=== PATIENT | male | born 1955 | race Caucasian/White ===

== ENCOUNTER 2017-06-26 17:18 | Inpatient (IN) | payer BC, MEDICARE ==
[2017-06-26] MEDS ORDERED: Aspirin 81 MG Tab.Chew PO ONE (17:38)
--- NOTE | 2017-06-26 17:40 | EDM.PDOC ---
<Brian Vogel - Last Filed: 06/27/17 09:26> ED HPI GENERAL MEDICAL PROBLEM - General Chief Complaint: Chest Pain Stated Complaint: CHEST PAIN Time Seen by Provider: 06/26/17 17:25 Source of Information: Reports: Patient, Family, Old Records History Limitations: Reports: Other (some of his records not immediately available.) - History of Present Illness INITIAL COMMENTS - FREE TEXT/NARRATIVE: 61 yo male with a hx of peripheral neuropathy, CAD, and peripheral vascular dz presents with redness of the L foot and leg that has gotten progressively worse over the past couple of days as well today he has mild chest tightness. He has coronary stents placed in [place] at [facility]. He is still smoking. He does not have DM. He is not aware of fever, but has been chilled. He states his HR is usually in the upper 80's. He has NTG at home, but did not take any before coming in. He did have acetaminophen shortly before leaving home with oxycodone. Some dyspnea on exertion per his . No nausea, but does have anorexia this afternoon. No diaphoresis. Onset: Gradual Onset Date: 06/24/17 (L leg sx's) Duration: Day(s): (L leg sx's. Chest tightness new this afternoon. ), Getting Worse Location: Reports: Chest, Lower Extremity, Left Quality: Reports: Dull (chest sx's. Cannot feel L great toe wounds due to neuropathy.) Severity: Mild Improves with: Reports: None Worsens with: Reports: Other (? time) Context: Reports: Trauma (injured L great toe a couple days ago, not exactly sure when or how. Redness progressive since then. ) Associated Symptoms: Reports: Chest Pain (mild chest tightness.), Fever/Chills ( no definite fever.), Loss of Appetite, Malaise, Shortness of Breath (with exertion only). 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 Chest Pain Score (Numeric/FACES): 4 - Related Data Allergies Allergy/AdvReac Type Severity Reaction Status Date / Time No Known Allergies Allergy Verified 06/26/17 17:24 Home Meds: Home Meds ALPRAZolam [Xanax] 0.5 mg PO QID PRN 05/16/16 [History] Aspirin [Halfprin] 81 mg PO BEDTIME 05/16/16 [History] Cetirizine [ZyrTEC] 10 mg PO BEDTIME 05/16/16 [History] Clopidogrel [Plavix] 75 mg PO BEDTIME 05/16/16 [History] Metoprolol Succinate [Toprol XL] 25 mg PO BEDTIME 05/16/16 [History] Nicotine Polacrilex [Nicotine Gum] 4 mg BC ASDIRECTED PRN 05/16/16 [History] Pregabalin [Lyrica] 100 mg PO TID 05/16/16 [History] Simvastatin [Zocor] 80 mg PO BEDTIME 05/16/16 [History] oxyCODONE HCl/Acetaminophen [Endocet 5-325 Tablet] 1 - 2 each PO Q4H PRN [History] Past Medical History Musculoskeletal History: Reports: Other (See Below) Other Musculoskeletal History: right knee Social & Family History - Tobacco Use Smoking Status *Q: Current Every Day Smoker Years of Tobacco use: 40 Packs/Tins Daily: 0 - Recreational Drug Use Recreational Drug Use: No ED ROS GENERAL - Review of Systems Review Of Systems: See Below Constitutional: Reports: Chills, Fatigue, Decreased Appetite. Denies: Diaphoresis HEENT: Reports: No Symptoms Respiratory: Reports: Shortness of Breath (with exertion only). Denies: Wheezing, Pleuritic Chest Pain, Cough, Sputum, Hemoptysis Cardiovascular: Reports: Chest Pain (mild chest tightness), Dyspnea on Exertion. Denies: Edema, Lightheadedness, Orthopnea, Palpitations Endocrine: Reports: No Symptoms GI/Abdominal: Reports: Anorexia. Denies: Black Stool, Bloody Stool, Constipation, Diarrhea, Distension, Flatus, Hematemesis, Hematochezia, Melena, Mucous in Stool, Nausea, Vomiting : Reports: No Symptoms Musculoskeletal: Reports: No Symptoms Skin: Reports: Erythema (L leg below the knee.), Wound (L great toe, medial toe , as well as nail injury) Neurological: Reports: No Symptoms ED EXAM, GENERAL - Physical Exam Exam: See Below Exam Limited By: No Limitations General Appearance: Alert, WD/WN, No Apparent Distress Eye Exam: Bilateral Eye: Normal Inspection Ears: Normal External Exam, Normal Canal, Hearing Grossly Normal Ear Exam: Bilateral Ear: Auricle Normal, Canal Normal Nose: Normal Inspection, Normal Mucosa, No Blood Throat/Mouth: Normal Inspection, Normal Lips, Normal Oropharynx, Normal Voice, No Airway Compromise Head: Atraumatic, Normocephalic Neck: Normal Inspection, Supple, Non-Tender Respiratory/Chest: No Respiratory Distress, Lungs Clear, Normal Breath Sounds, No Accessory Muscle Use Cardiovascular: Regular Rate, Rhythm, No Edema, Tachycardia (mildly tachy) GI/Abdominal: Normal Bowel Sounds, Soft, Non-Tender, No Distention Back Exam: Normal Inspection. No: CVA Tenderness (R), CVA Tenderness (L), Vertebral Tenderness Extremities: Increased Warmth (LLE below the knee.), Redness (LLE below the knee with slight increase in warmth as well.), Other (Decreased pulses in both LE's below the knees.) Neurological: Alert, Oriented, CN II-XII Intact, Normal Cognition, No Motor/ Sensory Deficits Psychiatric: Normal Affect, Normal Mood Skin Exam: Warm, Dry, Erythema (below the L knee), Increased Warmth (below the L knee.), Wound/Incision (L great toe nail injury. Medial ulcer present. ) Lymphatic: No Adenopathy EKG INTERPRETATION EKG Date: 06/26/17 Time: 17:15 Rhythm: NSR Rate (Beats/Min): 103 [place]: Normal P-Wave: Present QRS: RBBB ST-T: Normal QT: Normal Comparison: Change From Previous EKG EKG Interpretation Comments: BBB is more prominent now. Course - Vital Signs Last Recorded V/S: Last Vital Signs Temp 36.8 C 06/29/17 17:44 Pulse 86 06/29/17 17:44 Resp 16 06/29/17 17:44 BP 133/67 06/29/17 17:44 Pulse Ox 95 06/29/17 17:44 - Orders/Labs/Meds Orders: Medication Orders Acetaminophen (Tylenol) 650 mg PO Q4H PRN PRN Reason: Pain (Mild 1-3)/fever Last Admin: 06/27/17 13:10 Dose: 325 mg Admin: 06/27/17 07:56 Dose: 325 mg Admin: 06/27/17 03:24 Dose: 325 mg Albuterol (Proventil Neb Soln) 2.5 mg NEB Q4H PRN PRN Reason: Shortness Of Breath/wheezing Alprazolam (Xanax) 0.5 mg PO QID PRN PRN Reason: Anxiety Last Admin: 06/29/17 00:00 Dose: 0.5 mg Admin: 06/27/17 20:46 Dose: 0.5 mg Aspirin (Halfprin) 81 mg PO BEDTIME [facility] Last Admin: 06/28/17 21:57 Dose: 81 mg Admin: 06/27/17 20:43 Dose: 81 mg Admin: 06/26/17 22:47 Dose: 81 mg Bacitracin (Bacitracin Oint) 0 gm TOP DAILY [facility] Last Admin: 06/29/17 09:47 Dose: 1 applic Admin: 06/29/17 06:46 Dose: 1 applic Admin: 06/28/17 08:29 Dose: 1 applic Admin: 06/27/17 13:06 Dose: 1 applic Cetirizine HCl (Zyrtec) 10 mg PO BEDTIME [facility] Last Admin: 06/28/17 21:57 Dose: 10 mg Admin: 06/27/17 20:42 Dose: 10 mg Clopidogrel Bisulfate (Plavix) 75 mg PO BEDTIME [facility] Last Admin: 06/28/17 21:57 Dose: 75 mg Admin: 06/27/17 20:43 Dose: 75 mg Admin: 06/26/17 22:48 Dose: 75 mg Docusate Sodium (Colace) 100 mg PO BID PRN PRN Reason: Constipation Last Admin: 06/28/17 21:56 Dose: 100 mg Admin: 06/28/17 08:24 Dose: 100 mg Admin: 06/28/17 04:41 Dose: 100 mg Enoxaparin Sodium (Lovenox) 40 mg SUBCUT Q24H [facility] Last Admin: 06/28/17 21:57 Dose: 40 mg Admin: 06/27/17 21:32 Dose: 40 mg Admin: 06/26/17 22:46 Dose: 40 mg Hydromorphone HCl (Dilaudid) 0.5 mg IVPUSH Q4H PRN PRN Reason: Pain Ertapenem 1 gm/ Sodium (Chloride) 100 mls @ 200 mls/hr IV Q24H [facility] Last Admin: 06/29/17 10:10 Dose: 200 mls/hr Magnesium Hydroxide (Milk Of Magnesia) 30 ml PO Q12H PRN PRN Reason: Constipation Metoprolol Succinate (Toprol Xl) 25 mg PO BEDTIME [facility] Last Admin: 06/28/17 21:57 Dose: 25 mg Admin: 06/27/17 20:41 Dose: 25 mg Admin: 06/26/17 22:48 Dose: 25 mg Nicotine (Habitrol) 7 mg TRDERM DAILY [facility] Last Admin: 06/29/17 08:32 Dose: 7 mg Admin: 06/28/17 08:23 Dose: 7 mg Admin: 06/27/17 08:00 Dose: 7 mg Admin: 06/26/17 22:46 Dose: 7 mg Nicotine Polacrilex (Nicorelief) 4 mg PO ASDIRECTED PRN PRN Reason: Other Ondansetron HCl (Zofran) 4 mg IV Q4H PRN PRN Reason: Nausea/Vomiting Oxycodone/Acetaminophen (Percocet 325-5 Mg) 1 - 2 tab PO Q4H PRN PRN Reason: Pain Last Admin: 06/29/17 17:42 Dose: 1 tab Admin: 06/29/17 13:24 Dose: 1 tab Admin: 06/29/17 13:17 Dose: 1 tab Admin: 06/29/17 08:39 Dose: 1 tab Admin: 06/29/17 04:12 Dose: 1 tab Admin: 06/28/17 21:54 Dose: 2 tab Admin: 06/28/17 17:27 Dose: 1 tab Admin: 06/28/17 13:22 Dose: 1 tab Admin: 06/28/17 08:24 Dose: 1 tab Admin: 06/28/17 04:42 Dose: 1 tab Admin: 06/27/17 23:07 Dose: 2 tab Admin: 06/27/17 19:17 Dose: 2 tab Admin: 06/27/17 13:10 Dose: 1 tab Admin: 06/27/17 07:55 Dose: 1 tab Admin: 06/27/17 03:24 Dose: 1 tab Admin: 06/26/17 22:49 Dose: 1 tab Polyethylene Glycol (Miralax) 17 gm PO DAILY PRN PRN Reason: Constipation Pregabalin (Lyrica) 100 mg PO TID [facility] Last Admin: 06/29/17 13:17 Dose: 100 mg Admin: 06/29/17 08:32 Dose: 100 mg Admin: 06/28/17 21:56 Dose: 100 mg Admin: 06/28/17 13:23 Dose: 100 mg Admin: 06/28/17 08:24 Dose: 100 mg Admin: 06/27/17 20:46 Dose: 100 mg Admin: 06/27/17 13:10 Dose: 100 mg Admin: 06/27/17 08:00 Dose: 100 mg Admin: 06/26/17 22:47 Dose: 100 mg Simvastatin (Zocor) 80 mg PO BEDTIME [facility] Last Admin: 06/28/17 21:56 Dose: 80 mg Admin: 06/27/17 20:43 Dose: 80 mg Admin: 06/26/17 22:49 Dose: 80 mg Sodium Chloride (Saline Flush) 10 ml FLUSH ASDIRECTED PRN PRN Reason: Keep Vein Open Labs: Laboratory Tests 06/26/17 06/26/17 06/26/17 Range/Units 17:32 17:32 17:33 WBC 19.8 H (4.5-11.0) K/uL RBC 5.06 (4.30-5.90) M/uL Hgb 15.5 H (12.0-15.0) g/dL Hct 45.4 (40.0-54.0) % MCV 90 (80-98) fL MCH 31 (27-31) pg MCHC 34 (32-36) % Plt Count 302 (150-400) K/uL Sodium 135 L (140-148) mmol/L Potassium 4.0 (3.6-5.2) mmol/L Chloride 97 L (100-108) mmol/L Carbon Dioxide 29 (21-32) mmol/L Anion Gap 13.0 (5.0-14.0) mmol/L BUN 11 (7-18) mg/dL Creatinine 1.2 (0.8-1.3) mg/dL Est Cr Clr Drug Dosing 73.26 mL/min Estimated GFR (MDRD) > 60 (>60) Glucose 167 H (74-106) mg/dL Lactic Acid 2.6 H (0.4-2.0) mmol/L Calcium 8.6 (8.5-10.1) mg/dL Troponin I 0.089 H* (0.000-0.056) ng/mL C-Reactive Protein (0.0-0.3) mg/dL NT-Pro-B Natriuret Pep (5-125) pg/mL Urine Color Urine Appearance Urine pH (4.5-8.0) Ur Specific War (1.008-1.030) Urine Protein (NEGATIVE) mg/dL Urine Glucose (UA) (NEGATIVE) mg/dL Urine Ketones (NEGATIVE) mg/dL Urine Occult Blood (NEGATIVE) Urine Nitrite (NEGAITVE) Urine Bilirubin (NEGATIVE) Urine Urobilinogen (NORMAL) mg/dL Ur Leukocyte Esterase (NEGATIVE) Urine RBC (0-5) Urine WBC (0-5) Ur Epithelial Cells Amorphous Sediment Urine Bacteria Urine Mucus 06/26/17 06/26/17 06/26/17 Range/Units 17:33 18:12 19:31 WBC (4.5-11.0) K/uL RBC (4.30-5.90) M/uL Hgb (12.0-15.0) g/dL Hct (40.0-54.0) % MCV (80-98) fL MCH (27-31) pg MCHC (32-36) % Plt Count (150-400) K/uL Sodium (140-148) mmol/L Potassium (3.6-5.2) mmol/L Chloride (100-108) mmol/L Carbon Dioxide (21-32) mmol/L Anion Gap (5.0-14.0) mmol/L BUN (7-18) mg/dL Creatinine (0.8-1.3) mg/dL Est Cr Clr Drug Dosing mL/min Estimated GFR (MDRD) (>60) Glucose (74-106) mg/dL Lactic Acid (0.4-2.0) mmol/L Calcium (8.5-10.1) mg/dL Troponin I 0.277 H* (0.000-0.056) ng/mL C-Reactive Protein 11.04 H (0.0-0.3) mg/dL NT-Pro-B Natriuret Pep (5-125) pg/mL Urine Color Yellow Urine Appearance Slightly cloudy Urine pH 5.0 (4.5-8.0) Ur Specific War 1.020 (1.008-1.030) Urine Protein Negative (NEGATIVE) mg/dL Urine Glucose (UA) Normal (NEGATIVE) mg/dL Urine Ketones Negative (NEGATIVE) mg/dL Urine Occult Blood Large (NEGATIVE) Urine Nitrite Negative (NEGAITVE) Urine Bilirubin Negative (NEGATIVE) Urine Urobilinogen Normal (NORMAL) mg/dL Ur Leukocyte Esterase Negative (NEGATIVE) Urine RBC 5-10 H (0-5) Urine WBC Not seen (0-5) Ur Epithelial Cells Not seen Amorphous Sediment Rare Urine Bacteria Few Urine Mucus Few 06/26/17 Range/Units 20:13 WBC (4.5-11.0) K/uL RBC (4.30-5.90) M/uL Hgb (12.0-15.0) g/dL Hct (40.0-54.0) % MCV (80-98) fL MCH (27-31) pg MCHC (32-36) % Plt Count (150-400) K/uL Sodium (140-148) mmol/L Potassium (3.6-5.2) mmol/L Chloride (100-108) mmol/L Carbon Dioxide (21-32) mmol/L Anion Gap (5.0-14.0) mmol/L BUN (7-18) mg/dL Creatinine (0.8-1.3) mg/dL Est Cr Clr Drug Dosing mL/min Estimated GFR (MDRD) (>60) Glucose (74-106) mg/dL Lactic Acid (0.4-2.0) mmol/L Calcium (8.5-10.1) mg/dL Troponin I (0.000-0.056) ng/mL C-Reactive Protein (0.0-0.3) mg/dL NT-Pro-B Natriuret Pep 470 H (5-125) pg/mL Urine Color Urine Appearance Urine pH (4.5-8.0) Ur Specific War (1.008-1.030) Urine Protein (NEGATIVE) mg/dL Urine Glucose (UA) (NEGATIVE) mg/dL Urine Ketones (NEGATIVE) mg/dL Urine Occult Blood (NEGATIVE) Urine Nitrite (NEGAITVE) Urine Bilirubin (NEGATIVE) Urine Urobilinogen (NORMAL) mg/dL Ur Leukocyte Esterase (NEGATIVE) Urine RBC (0-5) Urine WBC (0-5) Ur Epithelial Cells Amorphous Sediment Urine Bacteria Urine Mucus Meds: Medications Generic Name Dose Route Start Last Admin Trade Name Freq PRN Reason Stop Dose Admin Acetaminophen 650 mg 06/26/17 22:03 06/27/17 13:10 Tylenol PO 325 mg Q4H PRN Administration Pain (Mild 1-3)/fever Albuterol 2.5 mg 06/26/17 22:03 Proventil Neb Soln NEB Q4H PRN Shortness Of Breath/wheezing Alprazolam 0.5 mg 06/26/17 22:03 06/29/17 00:00 Xanax PO 0.5 mg QID PRN Administration Anxiety Aspirin 81 mg 06/26/17 22:30 06/28/17 21:57 Halfprin PO 81 mg BEDTIME [facility] Administration Bacitracin 0 gm 06/27/17 10:30 06/29/17 09:47 Bacitracin Oint TOP 1 applic DAILY [facility] Administration Cetirizine HCl 10 mg 06/27/17 21:00 06/28/17 21:57 Zyrtec PO 10 mg BEDTIME [facility] Administration Clopidogrel Bisulfate 75 mg 06/26/17 22:30 06/28/17 21:57 Plavix PO 75 mg BEDTIME [facility] Administration Docusate Sodium 100 mg 06/26/17 22:03 06/28/17 21:56 Colace PO 100 mg BID PRN Administration Constipation Enoxaparin Sodium 40 mg 06/26/17 22:00 06/28/17 21:57 Lovenox SUBCUT 40 mg Q24H [facility] Administration Hydromorphone HCl 0.5 mg 06/26/17 22:03 Dilaudid IVPUSH Q4H PRN Pain Ertapenem 1 gm/ Sodium 100 mls @ 200 mls/hr 06/29/17 10:00 06/29/17 10:10 Chloride IV 200 mls/hr Q24H [facility] Administration Magnesium Hydroxide 30 ml 06/26/17 22:03 Milk Of Magnesia PO Q12H PRN Constipation Metoprolol Succinate 25 mg 06/26/17 22:30 06/28/17 21:57 Toprol Xl PO 25 mg BEDTIME [facility] Administration Nicotine 7 mg 06/26/17 22:03 06/29/17 08:32 Habitrol TRDERM 7 mg DAILY [facility] Administration Nicotine Polacrilex 4 mg 06/26/17 22:03 Nicorelief PO ASDIRECTED PRN Other Ondansetron HCl 4 mg 06/26/17 22:03 Zofran IV Q4H PRN Nausea/Vomiting Oxycodone/Acetaminophen 1 - 2 tab 06/26/17 22:03 06/29/17 17:42 Percocet 325-5 Mg PO 1 tab Q4H PRN Administration Pain Polyethylene Glycol 17 gm 06/26/17 22:03 Miralax PO DAILY PRN Constipation Pregabalin 100 mg 06/26/17 22:30 06/29/17 13:17 Lyrica PO 100 mg TID [facility] Administration Simvastatin 80 mg 06/26/17 22:30 06/28/17 21:56 Zocor PO 80 mg BEDTIME [facility] Administration Sodium Chloride 10 ml 06/26/17 22:03 Saline Flush FLUSH ASDIRECTED PRN Keep Vein Open Discontinued Medications Generic Name Dose Route Start Last Admin Trade Name Freq PRN Reason Stop Dose Admin Acetaminophen 650 mg 06/26/17 21:36 06/26/17 21:43 Tylenol PO 06/26/17 21:37 650 mg NOW ONE Administration Acetaminophen Confirm 06/27/17 03:22 06/27/17 05:04 Tylenol Administered 06/27/17 03:23 Not Given Dose 325 mg .ROUTE .STK-MED ONE Aspirin 324 mg 06/26/17 17:38 06/26/17 17:46 Aspirin PO 06/26/17 17:39 324 mg ONETIME ONE Administration Aspirin 81 mg 06/27/17 21:00 Halfprin PO BEDTIME [facility] Clopidogrel Bisulfate 75 mg 06/27/17 21:00 Plavix PO BEDTIME [facility] Hydromorphone HCl 0.5 mg 06/26/17 21:40 06/26/17 21:45 Dilaudid IVPUSH 06/26/17 21:41 0.5 mg ONETIME ONE Administration Sodium Chloride 1,000 mls @ 1,000 mls/hr 06/26/17 18:00 06/26/17 18:04 Normal Saline IV 1,000 mls/hr ASDIRECTED [facility] Administration Piperacillin Sod/Tazobactam 100 mls @ 200 mls/hr 06/26/17 18:06 06/26/17 18: 34 Sod 4.5 gm/ Sodium Chloride IV 06/26/17 18:35 200 mls/hr NOW STA Administration Vancomycin HCl 1 gm/ Sodium 250 mls @ 150 mls/hr 06/26/17 18:07 06/26/17 19: 08 Chloride IV 06/26/17 19:46 150 mls/hr ONETIME ONE Administration Sodium Chloride 1,000 mls @ 1,000 mls/hr 06/26/17 18:12 06/26/17 18:33 Normal Saline IV 06/26/17 19:11 1,000 mls/hr .BOLUS ONE Administration Sodium Chloride 1,000 mls @ 250 mls/hr 06/26/17 20:00 06/26/17 20:36 Normal Saline IV 250 mls/hr ASDIRECTED [facility] Administration Piperacillin Sod/Tazobactam 50 mls @ 100 mls/hr 06/27/17 00:30 06/27/17 05:31 Sod 3.375 gm/ Sodium Chloride IV 100 mls/hr Q6H [facility] Administration Sodium Chloride 1,000 mls @ 125 mls/hr 06/27/17 01:45 06/27/17 02:30 Normal Saline IV 125 mls/hr ASDIRECTED [facility] Administration Sodium Chloride 1,000 mls @ 500 mls/hr 06/26/17 22:30 06/27/17 00:30 Normal Saline IV 06/27/17 02:29 500 mls/hr Q2H [facility] Administration Vancomycin HCl 1.75 gm/ Sodium 500 mls @ 250 mls/hr 06/27/17 07:00 Chloride IV Q12H [facility] Piperacillin/Tazobactam/ 50 mls @ 100 mls/hr 06/27/17 12:00 06/29/17 05:35 Dextrose 3.375 gm/ Premix IV 100 mls/hr Q6H [facility] Administration Vancomycin HCl 1.75 gm/ Sodium 250 mls @ 135 mls/hr 06/27/17 08:00 06/28/17 08:22 Chloride IV 135 mls/hr Q12H [facility] Administration Magnesium Sulfate 2 gm/ Premix 50 mls @ 25 mls/hr 06/27/17 10:00 06/27/17 16: 24 IV 06/27/17 17:59 25 mls/hr Q6H [facility] Administration Sodium Chloride 1,000 mls @ 75 mls/hr 06/27/17 10:30 06/27/17 18:24 Normal Saline IV 75 mls/hr ASDIRECTED [facility] Administration Metoprolol Succinate 25 mg 06/27/17 21:00 Toprol Xl PO BEDTIME [facility] Nitroglycerin 0.4 mg 06/26/17 17:38 06/26/17 18:02 Nitrostat SL 0.4 mg Q5M PRN Administration Chest Pain Pregabalin 100 mg 06/27/17 09:00 Lyrica PO TID [facility] Simvastatin 80 mg 06/27/17 21:00 Zocor PO BEDTIME [facility] Sodium Chloride 10 ml 06/26/17 17:32 06/26/17 21:49 Saline Flush FLUSH 10 ml ASDIRECTED PRN Administration Keep Vein Open Departure - Departure Time of Disposition: 20:15 Disposition: Admitted As Inpatient 64 Condition: Serious Clinical Impression: Elevated troponin Sepsis Qualifiers: Sepsis type: sepsis due to unspecified organism Qualified Code(s): A41.9 - Sepsis, unspecified organism Cellulitis Qualifiers: Site of cellulitis: extremity Site of cellulitis of extremity: lower extremity Laterality: left Qualified Code(s): L03.116 - Cellulitis of left lower limb <Chica Cobos - Last Filed: 06/29/17 18:40> ED HPI GENERAL MEDICAL PROBLEM Back Pain Score (Numeric/FACES): 3 Course - Re-Assessments/Exams Free Text/Narrative Re-Assessment/Exam: 06/26/17 20:13 pt was gven a total of 2000 cc of fluid and zosyn and vancomycin was started. He had a repeat trop which was more elevated at .277. 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
[2017-06-26] MEDS: Sodium Chloride 0.9% 10 ML Syringe FLUSH PRN ×2 (17:46→21:49)
[2017-06-26] MEDS: Nitroglycerin 0.4 MG Tab.SL SL PRN ×2 (17:47→18:02)
[2017-06-26] MEDS ORDERED: Sodium Chloride 0.9% 1,000 ML IV SCH ×2 (18:00→20:00)
[2017-06-26] MEDS ORDERED: Piperacillin/Tazobactam 4.5 GM in Sodium Chloride 0.9% 100 ML IV STA (18:06)
[2017-06-26] MEDS ORDERED: Sodium Chloride 0.9% 1,000 ML IV ONE (18:12)
[2017-06-26] MEDS ORDERED: Acetaminophen 325 MG Tab PO ONE (21:36)
[2017-06-26] MEDS ORDERED: HYDROmorphone 0.5 MG/0.5 ML Syringe IVPUSH ONE (21:40)
--- NOTE | 2017-06-26 21:58 | PCM.HP ---
H&P History of Present Illness - General Date of Service: 06/26/17 Admit Problem/Dx: Admission Diagnosis/Problem Admission Diagnosis/Problem Cellulitis Source of Information: Patient, Family, Provider, RN Notes Reviewed History Limitations: Reports: No Limitations - History of Present Illness Initial Comments - Free Text/Narative: Bautista is a 61-year-old gentleman who is admitted through the emergency department with left foot infection and associated sepsis. He has a known history of peripheral arterial disease, as well as peripheral neuropathy. Approximately one week ago injured his left first toe when he stubbed it. Over the last 3 days has noted pain in the left leg and over the last 24 hours has had fever with chills. He became more acutely ill today and presented to the emergency department for further evaluation. On examination there is inflammation and erythema with increased warmth of the left foot and extending into the left leg. There is some drainage from the left first toe. He's had associated tachycardia with fever and elevated white count. Lactic acid level is mildly elevated. He has a known history of coronary artery disease and did experience a half hour to one hour of chest pressure when he felt acutely ill this afternoon and early evening. Initial troponin level was elevated at 0.09 and second reading was up to 0.22. He's had no further symptoms of chest pain or pressure EKG does show underlying right bundle branch block which is chronic. Chest Pain Score (Numeric/FACES): 4 - Related Data Allergies/Adverse Reactions: Allergies Allergy/AdvReac Type Severity Reaction Status Date / Time No Known Allergies Allergy Verified 06/26/17 17:24 Home Medications: Home Meds ALPRAZolam [Xanax] 0.5 mg PO QID PRN 05/16/16 [History] Aspirin [Halfprin] 81 mg PO BEDTIME 05/16/16 [History] Cetirizine [ZyrTEC] 10 mg PO BEDTIME 05/16/16 [History] Clopidogrel [Plavix] 75 mg PO BEDTIME 05/16/16 [History] Metoprolol Succinate [Toprol XL] 25 mg PO BEDTIME 05/16/16 [History] Nicotine Polacrilex [Nicotine Gum] 4 mg BC ASDIRECTED PRN 05/16/16 [History] Pregabalin [Lyrica] 100 mg PO QID 05/16/16 [History] Simvastatin [Zocor] 80 mg PO BEDTIME 05/16/16 [History] oxyCODONE HCl/Acetaminophen [Endocet 5-325 Tablet] 1 - 2 each PO Q4H PRN [History] Past Medical History HEENT History: Reports: Hard of Hearing, Other (See Below) Other HEENT History: ruptured ear drums Cardiovascular History: Reports: Afib, Bypass, CAD, NH, PVD, SOB on Exertion, Stents Respiratory History: Reports: COPD Musculoskeletal History: Reports: Other (See Below) Other Musculoskeletal History: right knee Neurological History: Reports: Neuropathy, Peripheral Psychiatric History: Reports: Anxiety - Past Surgical History HEENT Surgical History: Reports: Tonsillectomy Cardiovascular Surgical History: Reports: Coronary Artery Bypass, Coronary Artery Stent, Vascular Surgery, Other (See Below) Other Cardiovascular Surgeries/Procedures: "attempted vascular surgery" was unsuccessful. GI Surgical History: Reports: Appendectomy, Colonoscopy, Hernia, Abdominal, Polypectomy Neurological Surgical History: Reports: Laminectomy, Lumbar Spine, Spinal Fusion , Other (See Below) Other Neurological Surgeries/Procedures: alif surgery Musculoskeletal Surgical History: Reports: Arthroscopic Knee, Knee Replacement Social & Family History - Tobacco Use Smoking Status *Q: Current Every Day Smoker Years of Tobacco use: 40 Packs/Tins Daily: 0 - Recreational Drug Use Recreational Drug Use: No H&P Review of Systems - Review of Systems: Review Of Systems: See Below General: Reports: Fever, Chills, Malaise, Weakness, Diaphoresis, Decreased Appetite HEENT: Reports: No Symptoms Pulmonary: Reports: Shortness of Breath. Denies: Wheezing, Pleuritic Chest Pain , Cough, Sputum, Hemoptysis Cardiovascular: Reports: Chest Pain. Denies: Orthopnea, PND, Edema, Lightheadedness, Syncope Gastrointestinal: Reports: Anorexia, Nausea, Vomiting. Denies: Abdominal Pain, Black Stool, Bloody Stool, Constipation, Diarrhea Genitourinary: Reports: No Symptoms Musculoskeletal: Reports: Back Pain Skin: Reports: No Symptoms Psychiatric: Reports: No Symptoms Neurological: Reports: No Symptoms Hematologic/Lymphatic: Reports: No Symptoms Immunologic: Reports: No Symptoms Exam - Exam Exam: See Below - Vital Signs Vital Signs: Last Vital Signs Temp 101.9 F H 06/26/17 21:43 Pulse 106 H 06/26/17 20:50 Resp 20 06/26/17 20:50 BP 150/76 H 12/25/17 20:50 Pulse Ox 96 06/26/17 20:50 Weight: 255 lb - Exam Quality Assessment: DVT Prophylaxis General: Alert, Oriented, Cooperative, Moderate Distress HEENT: Conjunctiva Clear, Hearing Intact, Normal Nasal Septum, Posterior Pharynx Clear, Pupils Equal. No: Mucosa Moist & [place] Neck: Supple, Trachea Midline, +2 Carotid Pulse wo Bruit Lungs: Decreased Breath Sounds, Wheezing. No: Crackles, Rales, Rhonchi, Rub Cardiovascular: Regular Rate, Regular Rhythm, Normal S1, Normal S2. No: Systolic Murmur, Diastolic Murmur GI/Abdominal Exam: Soft, Non-Tender, No Organomegaly, No Distention Back Exam: Normal Inspection, Vertebral Tenderness Extremities: Increased Warmth, Redness, Other (Edema of the left foot with tenderness to palpation) Skin: Warm, Dry Neurological: Cranial Nerves Intact, Strength Equal Bilateral, Normal Speech, Normal Tone. No: Sensation Intact, Focal Deficit Neuro Extensive - Mental Status: Alert, Oriented x3, Normal Mood/Affect, Normal Cognition, Memory Intact - Patient Data Lab Results Last 24 hrs: Laboratory Results - last 24 hr 06/26/17 06/26/17 06/26/17 Range/Units 17:32 17:32 17:33 WBC 19.8 H (4.5-11.0) K/uL RBC 5.06 (4.30-5.90) M/uL Hgb 15.5 H (12.0-15.0) g/dL Hct 45.4 (40.0-54.0) % MCV 90 (80-98) fL MCH 31 (27-31) pg MCHC 34 (32-36) % Plt Count 302 (150-400) K/uL Sodium 135 L (140-148) mmol/L Potassium 4.0 (3.6-5.2) mmol/L Chloride 97 L (100-108) mmol/L Carbon Dioxide 29 (21-32) mmol/L Anion Gap 13.0 (5.0-14.0) mmol/L BUN 11 (7-18) mg/dL Creatinine 1.2 (0.8-1.3) mg/dL Est Cr Clr Drug Dosing 73.26 mL/min Estimated GFR (MDRD) > 60 (>60) Glucose 167 H (74-106) mg/dL Lactic Acid 2.6 H (0.4-2.0) mmol/L Calcium 8.6 (8.5-10.1) mg/dL Troponin I 0.089 H* (0.000-0.056) ng/mL C-Reactive Protein (0.0-0.3) mg/dL NT-Pro-B Natriuret Pep (5-125) pg/mL Urine Color Urine Appearance Urine pH (4.5-8.0) Ur Specific [place]att[place] (1.008-1.030) Urine Protein (NEGATIVE) mg/dL Urine Glucose (UA) (NEGATIVE) mg/dL Urine Ketones (NEGATIVE) mg/dL Urine Occult Blood (NEGATIVE) Urine Nitrite (NEGAITVE) Urine Bilirubin (NEGATIVE) Urine Urobilinogen (NORMAL) mg/dL Ur Leukocyte Esterase (NEGATIVE) Urine RBC (0-5) Urine WBC (0-5) Ur Epithelial Cells Amorphous Sediment Urine Bacteria Urine Mucus 06/26/17 06/26/17 06/26/17 Range/Units 17:33 18:12 19:31 WBC (4.5-11.0) K/uL RBC (4.30-5.90) M/uL Hgb (12.0-15.0) g/dL Hct (40.0-54.0) % MCV (80-98) fL MCH (27-31) pg MCHC (32-36) % Plt Count (150-400) K/uL Sodium (140-148) mmol/L Potassium (3.6-5.2) mmol/L Chloride (100-108) mmol/L Carbon Dioxide (21-32) mmol/L Anion Gap (5.0-14.0) mmol/L BUN (7-18) mg/dL Creatinine (0.8-1.3) mg/dL Est Cr Clr Drug Dosing mL/min Estimated GFR (MDRD) (>60) Glucose (74-106) mg/dL Lactic Acid (0.4-2.0) mmol/L Calcium (8.5-10.1) mg/dL Troponin I 0.277 H* (0.000-0.056) ng/mL C-Reactive Protein 11.04 H (0.0-0.3) mg/dL NT-Pro-B Natriuret Pep (5-125) pg/mL Urine Color Yellow Urine Appearance Slightly cloudy Urine pH 5.0 (4.5-8.0) Ur Specific [place] 1.020 (1.008-1.030) Urine Protein Negative (NEGATIVE) mg/dL Urine Glucose (UA) Normal (NEGATIVE) mg/dL Urine Ketones Negative (NEGATIVE) mg/dL Urine Occult Blood Large (NEGATIVE) Urine Nitrite Negative (NEGAITVE) Urine Bilirubin Negative (NEGATIVE) Urine Urobilinogen Normal (NORMAL) mg/dL Ur Leukocyte Esterase Negative (NEGATIVE) Urine RBC 5-10 H (0-5) Urine WBC Not seen (0-5) Ur Epithelial Cells Not seen Amorphous Sediment Rare Urine Bacteria Few Urine Mucus Few 06/26/17 Range/Units 20:13 WBC (4.5-11.0) K/uL RBC (4.30-5.90) M/uL Hgb (12.0-15.0) g/dL Hct (40.0-54.0) % MCV (80-98) fL MCH (27-31) pg MCHC (32-36) % Plt Count (150-400) K/uL Sodium (140-148) mmol/L Potassium (3.6-5.2) mmol/L Chloride (100-108) mmol/L Carbon Dioxide (21-32) mmol/L Anion Gap (5.0-14.0) mmol/L BUN (7-18) mg/dL Creatinine (0.8-1.3) mg/dL Est Cr Clr Drug Dosing mL/min Estimated GFR (MDRD) (>60) Glucose (74-106) mg/dL Lactic Acid (0.4-2.0) mmol/L Calcium (8.5-10.1) mg/dL Troponin I (0.000-0.056) ng/mL C-Reactive Protein (0.0-0.3) mg/dL NT-Pro-B Natriuret Pep 470 H (5-125) pg/mL Urine Color Urine Appearance Urine pH (4.5-8.0) Ur Specific Rattan (1.008-1.030) Urine Protein (NEGATIVE) mg/dL Urine Glucose (UA) (NEGATIVE) mg/dL Urine Ketones (NEGATIVE) mg/dL Urine Occult Blood (NEGATIVE) Urine Nitrite (NEGAITVE) Urine Bilirubin (NEGATIVE) Urine Urobilinogen (NORMAL) mg/dL Ur Leukocyte Esterase (NEGATIVE) Urine RBC (0-5) Urine WBC (0-5) Ur Epithelial Cells Amorphous Sediment Urine Bacteria Urine Mucus Result Diagrams: 06/26/17 17:32 06/26/17 17:32 *Q Meaningful Use (ADM) - VTE *Q VTE Criteria *Q: - VTE Risk Assess *Q Each Risk Factor Represents 1 Point: Obesity ( BMI > 25 kg/m2), Abnormal Pulmonary Function (COPD) Total Score 1 Point Risk Factors: 2 Each Risk Factor Represents 2 Points: Age 60 - 74 Years Total Score 2 Point Risk Factors: 2 Each Risk Factor Represents 3 Points: None Total Score 3 Point Risk Factors: 0 Each Risk Factor Represents 5 Points: None Total Score 5 Point Risk Factors: 0 Venous Thromboembolism Risk Factor Score *Q: 4 - Stroke *Q Stroke Criteria *Q: - AMI *Q AMI Criteria *Q: Problem List Initiated/Reviewed/Updated: Yes Orders Last 24hrs: Active Orders 24 hr Category Date Time Status Patient Status Manage Transfer [TRANSFER] Routine ADT 06/26/17 21:41 Ordered Cardiac Monitoring [RC] .As Directed Care 06/26/17 17:24 Active EKG Documentation Completion [RC] ASDIRECTED Care 06/26/17 17:24 Active Chest 1V Frontal [CR] Stat Exams 06/26/17 17:58 Taken CULTURE BLOOD [BC] Stat Lab 06/26/17 17:40 Received CULTURE BLOOD [BC] Stat Lab 06/26/17 18:05 Received Nitroglycerin [Nitrostat] Med 06/26/17 17:38 Active 0.4 mg SL Q5M PRN Sodium Chloride 0.9% [Normal Saline] 1,000 ml Med 06/26/17 18:00 Active IV ASDIRECTED Sodium Chloride 0.9% [Normal Saline] 1,000 ml Med 06/26/17 20:00 Active IV ASDIRECTED Sodium Chloride 0.9% [Saline Flush] Med 06/26/17 17:32 Active 10 ml FLUSH ASDIRECTED PRN Saline Lock Insert [OM.PC] Routine Oth 06/26/17 17:32 Ordered Resuscitation Status Routine Resus Stat 06/26/17 21:43 Ordered EKG 12 Lead [EK] Routine Ther 06/26/17 17:24 Ordered Medication Orders Sodium Chloride (Normal Saline) 1,000 mls @ 1,000 mls/hr IV ASDIRECTED KEISHA Last Admin: 06/26/17 18:04 Dose: 1,000 mls/hr Sodium Chloride (Normal Saline) 1,000 mls @ 250 mls/hr IV ASDIRECTED KEISHA Last Admin: 06/26/17 20:36 Dose: 250 mls/hr Nitroglycerin (Nitrostat) 0.4 mg SL Q5M PRN PRN Reason: Chest Pain Last Admin: 06/26/17 18:02 Dose: 0.4 mg Admin: 06/26/17 17:47 Dose: 0.4 mg Sodium Chloride (Saline Flush) 10 ml FLUSH ASDIRECTED PRN PRN Reason: Keep Vein Open Last Admin: 06/26/17 21:49 Dose: 10 ml Admin: 06/26/17 17:46 Dose: 10 ml Assessment/Plan Comment:: ASSESSMENT AND PLAN CELLULITIS LEFT FOOT WITH SEPSIS-injury to the left first toe approximately 1 week ago. Increased pain over the past 72 hours with evidence of infection over the last 24 hours. Evidence of sepsis on initial evaluation. -Blood cultures pending -Vigorous IV fluid replacement per sepsis protocol -Repeat lactic acid level later tonight and again in a.m. -Surgical consult in a.m. -Broad-spectrum IV antibiotic therapy; vancomycin and Zosyn, pending culture results ELEVATED TROPONIN-likely demand ischemia in the setting of sepsis -Repeat troponin level later tonight and again in a.m. -Consider cardiology follow-up after infection resolved PERIPHERAL ARTERIAL DISEASE -Continue outpatient management MAINTENANCE ISSUES -DVT prophylaxis; Lovenox 40 mg subcutaneous daily -GI prophylaxis; not indicated -Brothers catheter; not indicated -Nutrition; regular diet -Nicotine dependence; 7 mg nicotinic patch, nicotinic, as needed CODE STATUS-FULL CODE ADMISSION STATUS-patient will be admitted to inpatient status, expect at least a 2 night hospital stay for evaluation and management of problems as outlined above. At the time of this admission I do not reasonably expected evaluation and management of this problem will require more than a 96 hour hospital stay. DISPOSITION-anticipate discharge to home after the hospital stay. PRIMARY CARE PROVIDER-Dr. Liu
[2017-06-26] MEDS ORDERED: Magnesium Hydroxide 400 MG/5 ML Susp 30 ML Cup PO PRN (22:03)
[2017-06-26] MEDS ORDERED: Sodium Chloride 0.9% 10 ML Syringe FLUSH PRN (22:03)
[2017-06-26] MEDS ORDERED: Vancomycin 1 GM SDV IV SCH (22:03)
[2017-06-26] MEDS ORDERED: HYDROmorphone 0.5 MG/0.5 ML Syringe IVPUSH PRN (22:03)
[2017-06-26] MEDS ORDERED: Sodium Chloride 0.9% 500 ML IV ONE (22:03)
[2017-06-26] MEDS ORDERED: Polyethylene Glycol 3350 Powder 17 GM Packet PO PRN (22:03)
[2017-06-26] MEDS ORDERED: Albuterol 0.083% 2.5 MG/3 ML Neb Soln NEB PRN (22:03)
[2017-06-26] MEDS ORDERED: Ondansetron 4 MG/2 ML SDV IV PRN (22:03)
[2017-06-26] MEDS ORDERED: Nicotine Polacrilex 2 MG Gum PO PRN (22:03)
[2017-06-26] MEDS: Sodium Chloride 0.9% 1,000 ML IV SCH ×2 (22:19→22:54)
[2017-06-26] MEDS: Enoxaparin 40 MG/0.4 ML Syringe SUBCUT SCH (22:46)
[2017-06-26] MEDS: Nicotine 7 MG/24 Hr Patch TRDERM SCH (22:46)
[2017-06-26] MEDS: Pregabalin 100 MG Cap PO SCH (22:47)
[2017-06-26] MEDS: Aspirin 81 MG Tab.EC PO SCH (22:47)
[2017-06-26] MEDS: Clopidogrel 75 MG Tab PO SCH (22:48)
[2017-06-26] MEDS: Metoprolol Succinate 25 MG Tab.ER PO SCH (22:48)
[2017-06-26] MEDS: Simvastatin 20 MG Tab PO SCH (22:49)
[2017-06-26] MEDS: Acetaminophen/oxyCODONE 325-5 MG Tab PO PRN (22:49)
[2017-06-26] MEDS: Piperacillin/Tazobactam 3.375 GM in Sodium Chloride 0.9% 50 ML IV SCH (23:50)
[2017-06-27] MEDS: Sodium Chloride 0.9% 1,000 ML IV SCH (00:30)
[2017-06-27] MEDS ORDERED: Sodium Chloride 0.9% 1,000 ML IV SCH ×2 (01:45→10:30)
[2017-06-27] MEDS ORDERED: Acetaminophen 325 MG Tab ONE (03:22)
[2017-06-27] MEDS: Acetaminophen 325 MG Tab PO PRN ×3 (03:24→13:10)
[2017-06-27] MEDS: Acetaminophen/oxyCODONE 325-5 MG Tab PO PRN ×5 (03:24→23:07)
[2017-06-27] MEDS: Piperacillin/Tazobactam 3.375 GM in Sodium Chloride 0.9% 50 ML IV SCH (05:31)
[2017-06-27] MEDS ORDERED: Vancomycin 1.75 GM in Sodium Chloride 0.9% 500 ML IV SCH (07:00)
[2017-06-27] MEDS: Pregabalin 100 MG Cap PO SCH ×3 (08:00→20:46)
[2017-06-27] MEDS: Nicotine 7 MG/24 Hr Patch TRDERM SCH (08:00)
--- NOTE | 2017-06-27 08:48 | CR ---
Mild cardio mentally. Sternotomy. Mild interstitial thickening. This may be chronic. Correlate for mi ld interstitial edema. No focal consolidation.
[2017-06-27] MEDS ORDERED: Pregabalin 100 MG Cap PO SCH (09:00)
[2017-06-27] MEDS: Magnesium Sulfate/Water 2 GM in Premix Bag 1 BAG IV SCH ×2 (09:45→16:24)
--- NOTE | 2017-06-27 10:33 | PCM.PN ---
- General Info Date of Service: 06/27/17 Subjective Update: Mr. Houser has improved since admission last night, sepsis appears to have resolved and troponin level is decreasing. There is significant improvement in erythema and swelling in the foot since last night. Appetite seems to be coming back and he does not feel as weak. Blood culture results are still pending at this time. Functional Status: Reports: Tolerating Diet, Urinating - Review of Systems General: Reports: Fever, Weakness, Chills Pulmonary: Reports: No Symptoms Cardiovascular: Reports: No Symptoms Gastrointestinal: Reports: No Symptoms Musculoskeletal: Reports: Back Pain - Patient Data Vitals - Most Recent: Last Vital Signs Temp 98.9 F 06/27/17 08:26 Pulse 85 06/27/17 08:16 Resp 18 06/27/17 08:16 BP 125/52 L 06/27/17 08:16 Pulse Ox 18 L 06/27/17 08:16 Weight - Most Recent: 242 lb 1.6 oz I&O - Last 24 Hours: Intake & Output 06/26/17 06/27/17 06/27/17 22:59 06:59 14:59 Intake Total 2803 520 Output Total 1375 400 Balance 1428 120 Lab Results Last 24 Hours: Laboratory Results - last 24 hr 06/26/17 06/26/17 06/27/17 Range/Units 22:54 22:54 04:50 WBC (4.5-11.0) K/uL RBC (4.30-5.90) M/uL Hgb (12.0-15.0) g/dL Hct (40.0-54.0) % MCV (80-98) fL MCH (27-31) pg MCHC (32-36) % Plt Count (150-400) K/uL Neut % (Auto) (36-66) % Lymph % (Auto) (24-44) % [place] % (Auto) (2-6) % Eos % (Auto) (2-4) % Baso % (Auto) (0-1) % Sodium (140-148) mmol/L Potassium (3.6-5.2) mmol/L Chloride (100-108) mmol/L Carbon Dioxide (21-32) mmol/L Anion Gap (5.0-14.0) mmol/L BUN (7-18) mg/dL Creatinine (0.8-1.3) mg/dL Est Cr Clr Drug Dosing mL/min Estimated GFR (MDRD) (>60) Glucose (74-106) mg/dL Lactic Acid 1.0 1.1 (0.4-2.0) mmol/L Calcium (8.5-10.1) mg/dL Magnesium (1.8-2.4) mg/dL Troponin I 0.375 H* (0.000-0.056) ng/mL 06/27/17 06/27/17 Range/Units 04:50 04:50 WBC 22.8 H (4.5-11.0) K/uL RBC 4.32 (4.30-5.90) M/uL Hgb 13.4 D (12.0-15.0) g/dL Hct 39.3 L (40.0-54.0) % MCV 91 (80-98) fL MCH 31 (27-31) pg MCHC 34 (32-36) % Plt Count 236 (150-400) K/uL Neut % (Auto) 77 H (36-66) % Lymph % (Auto) 9 L (24-44) % [place] % (Auto) 14 H (2-6) % Eos % (Auto) 0 L (2-4) % Baso % (Auto) 0 (0-1) % Sodium 138 L (140-148) mmol/L Potassium 3.9 (3.6-5.2) mmol/L Chloride 104 (100-108) mmol/L Carbon Dioxide 24 (21-32) mmol/L Anion Gap 13.9 (5.0-14.0) mmol/L BUN 11 (7-18) mg/dL Creatinine 0.9 (0.8-1.3) mg/dL Est Cr Clr Drug Dosing 94.94 mL/min Estimated GFR (MDRD) > 60 (>60) Glucose 138 H (74-106) mg/dL Lactic Acid (0.4-2.0) mmol/L Calcium 7.6 L (8.5-10.1) mg/dL Magnesium 1.6 L (1.8-2.4) mg/dL Troponin I 0.292 H* (0.000-0.056) ng/mL Med Orders - Current: Current Medications Acetaminophen (Tylenol) 650 mg PO Q4H PRN PRN Reason: Pain (Mild 1-3)/fever Last Admin: 06/27/17 07:56 Dose: 325 mg Albuterol (Proventil Neb Soln) 2.5 mg NEB Q4H PRN PRN Reason: Shortness Of Breath/wheezing Alprazolam (Xanax) 0.5 mg PO QID PRN PRN Reason: Anxiety Aspirin (Halfprin) 81 mg PO BEDTIME [facility] Last Admin: 06/26/17 22:47 Dose: 81 mg Bacitracin (Bacitracin Oint) 0 gm TOP DAILY [facility] Cetirizine HCl (Zyrtec) 10 mg PO BEDTIME [facility] Clopidogrel Bisulfate (Plavix) 75 mg PO BEDTIME [facility] Last Admin: 06/26/17 22:48 Dose: 75 mg Docusate Sodium (Colace) 100 mg PO BID PRN PRN Reason: Constipation Enoxaparin Sodium (Lovenox) 40 mg SUBCUT Q24H [facility] Last Admin: 06/26/17 22:46 Dose: 40 mg Hydromorphone HCl (Dilaudid) 0.5 mg IVPUSH Q4H PRN PRN Reason: Pain Piperacillin/Tazobactam/ (Dextrose 3.375 gm/ Premix) 50 mls @ 100 mls/hr IV Q6H [facility] Vancomycin HCl 1.75 gm/ Sodium (Chloride) 250 mls @ 135 mls/hr IV Q12H [facility] Last Admin: 06/27/17 07:44 Dose: 135 mls/hr Magnesium Sulfate 2 gm/ Premix 50 mls @ 25 mls/hr IV Q6H [facility] Stop: 06/27/17 17:59 Last Admin: 06/27/17 09:45 Dose: 25 mls/hr Sodium Chloride (Normal Saline) 1,000 mls @ 75 mls/hr IV ASDIRECTED [facility] Magnesium Hydroxide (Milk Of Magnesia) 30 ml PO Q12H PRN PRN Reason: Constipation Metoprolol Succinate (Toprol Xl) 25 mg PO BEDTIME [facility] Last Admin: 06/26/17 22:48 Dose: 25 mg Nicotine (Habitrol) 7 mg TRDERM DAILY [facility] Last Admin: 06/27/17 08:00 Dose: 7 mg Nicotine Polacrilex (Nicorelief) 4 mg PO ASDIRECTED PRN PRN Reason: Other Ondansetron HCl (Zofran) 4 mg IV Q4H PRN PRN Reason: Nausea/Vomiting Oxycodone/Acetaminophen (Percocet 325-5 Mg) 1 - 2 tab PO Q4H PRN PRN Reason: Pain Last Admin: 06/27/17 07:55 Dose: 1 tab Polyethylene Glycol (Miralax) 17 gm PO DAILY PRN PRN Reason: Constipation Pregabalin (Lyrica) 100 mg PO TID [facility] Last Admin: 06/27/17 08:00 Dose: 100 mg Simvastatin (Zocor) 80 mg PO BEDTIME KEISHA Last Admin: 06/26/17 22:49 Dose: 80 mg Sodium Chloride (Saline Flush) 10 ml FLUSH ASDIRECTED PRN PRN Reason: Keep Vein Open Vancomycin HCl (Vancomycin) 1 gm IV .PHARMACY TO DOSE [facility] Discontinued Medications Acetaminophen (Tylenol) 650 mg PO NOW ONE Stop: 06/26/17 21:37 Last Admin: 06/26/17 21:43 Dose: 650 mg Acetaminophen (Tylenol) Confirm Administered Dose 325 mg .ROUTE .STK-MED ONE Stop: 06/27/17 03:23 Last Admin: 06/27/17 05:04 Dose: Not Given Aspirin (Aspirin) 324 mg PO ONETIME ONE Stop: 06/26/17 17:39 Last Admin: 06/26/17 17:46 Dose: 324 mg Aspirin (Halfprin) 81 mg PO BEDTIME KEISHA Clopidogrel Bisulfate (Plavix) 75 mg PO BEDTIME KEISHA Hydromorphone HCl (Dilaudid) 0.5 mg IVPUSH ONETIME ONE Stop: 06/26/17 21:41 Last Admin: 06/26/17 21:45 Dose: 0.5 mg Sodium Chloride (Normal Saline) 1,000 mls @ 1,000 mls/hr IV ASDIRECTED KEISHA Last Admin: 06/26/17 18:04 Dose: 1,000 mls/hr Piperacillin Sod/Tazobactam (Sod 4.5 gm/ Sodium Chloride) 100 mls @ 200 mls/hr IV NOW STA Stop: 06/26/17 18:35 Last Admin: 06/26/17 18:34 Dose: 200 mls/hr Vancomycin HCl 1 gm/ Sodium (Chloride) 250 mls @ 150 mls/hr IV ONETIME ONE Stop: 06/26/17 19:46 Last Admin: 06/26/17 19:08 Dose: 150 mls/hr Sodium Chloride (Normal Saline) 1,000 mls @ 1,000 mls/hr IV .BOLUS ONE Stop: 06/26/17 19:11 Last Admin: 06/26/17 18:33 Dose: 1,000 mls/hr Sodium Chloride (Normal Saline) 1,000 mls @ 250 mls/hr IV ASDIRECTED [facility] Last Admin: 06/26/17 20:36 Dose: 250 mls/hr Piperacillin Sod/Tazobactam (Sod 3.375 gm/ Sodium Chloride) 50 mls @ 100 mls/ hr IV Q6H [facility] Last Admin: 06/27/17 05:31 Dose: 100 mls/hr Sodium Chloride (Normal Saline) 1,000 mls @ 125 mls/hr IV ASDIRECTED [facility] Last Admin: 06/27/17 02:30 Dose: 125 mls/hr Sodium Chloride (Normal Saline) 1,000 mls @ 500 mls/hr IV Q2H [facility] Stop: 06/27/17 02:29 Last Admin: 06/27/17 00:30 Dose: 500 mls/hr Vancomycin HCl 1.75 gm/ Sodium (Chloride) 500 mls @ 250 mls/hr IV Q12H [facility] Metoprolol Succinate (Toprol Xl) 25 mg PO BEDTIME [facility] Nitroglycerin (Nitrostat) 0.4 mg SL Q5M PRN PRN Reason: Chest Pain Last Admin: 06/26/17 18:02 Dose: 0.4 mg Pregabalin (Lyrica) 100 mg PO TID KEISHA Simvastatin (Zocor) 80 mg PO BEDTIME [facility] Sodium Chloride (Saline Flush) 10 ml FLUSH ASDIRECTED PRN PRN Reason: Keep Vein Open Last Admin: 06/26/17 21:49 Dose: 10 ml - Exam Quality Assessment: DVT Prophylaxis General: Alert, Oriented, Cooperative, No Acute Distress Lungs: Clear to Auscultation, Normal Respiratory Effort Cardiovascular: Regular Rate, Regular Rhythm, No Murmurs GI/Abdominal Exam: Soft, Non-Tender, No Organomegaly, No Distention Extremities: Increased Warmth, Redness Skin: Warm, Dry - Problem List Review Problem List Initiated/Reviewed/Updated: Yes - My Orders Last 24 Hours: My Active Orders 06/26/17 21:43 Resuscitation Status Routine 06/26/17 22:00 Enoxaparin [Lovenox] 40 mg SUBCUT Q24H 06/26/17 22:03 Patient Status [ADT] Routine Ambulate [RC] QID Cardiac Monitoring [RC] Q6H Height and Weight [RC] 0511 Intake and Output [RC] QSHIFT Notify Provider Vital Signs [RC] ASDIRECTED Oxygen Therapy [RC] PRN Peripheral IV Care [RC] Q12H RT Aerosol Therapy [RC] ASDIRECTED Up With Assistance [RC] ASDIRECTED Up to Chair [RC] QID VTE/DVT Education [RC] Per Unit Routine Vital Signs [RC] Q2H PT Evaluation and Treatment [CONS] Routine Acetaminophen [Tylenol] 650 mg PO Q4H PRN Albuterol [Proventil Neb Soln] 2.5 mg NEB Q4H PRN Docusate Sodium [Colace] 100 mg PO BID PRN HYDROmorphone [Dilaudid] 0.5 mg IVPUSH Q4H PRN Magnesium Hydroxide [Milk of Magnesia] 30 ml PO Q12H PRN Nicotine [Habitrol] 7 mg TRDERM DAILY Ondansetron [Zofran] 4 mg IV Q4H PRN Polyethylene Glycol 3350 [MiraLAX] 17 gm PO DAILY PRN Sodium Chloride 0.9% [Saline Flush] 10 ml FLUSH ASDIRECTED PRN Vancomycin 1 gm IV .PHARMACY TO DOSE Peripheral IV Insertion Adult [OM.PC] Routine 06/26/17 22:30 Aspirin [Halfprin] 81 mg PO BEDTIME Clopidogrel [Plavix] 75 mg PO BEDTIME Metoprolol Succinate [Toprol XL] 25 mg PO BEDTIME Pregabalin [Lyrica] 100 mg PO TID Simvastatin [Zocor] 80 mg PO BEDTIME 06/26/17 Dinner Regular Diet [DIET] 06/27/17 08:00 Vancomycin 1.75 gm Sodium Chloride 0.9% [Normal Saline] 250 ml IV Q12H 06/27/17 10:00 Magnesium Sulfate/Water [Magnesium Sulfate 2 GM in Water 50 ML] 2 gm Premix Bag 1 bag IV Q6H 06/27/17 10:28 Notify Provider Consults [RC] ASDIRECTED Consult to Physician [CONS] Routine 06/27/17 10:30 Sodium Chloride 0.9% @ 75 MLS/HR(1000ml) Sodium Chloride 0.9% [Normal Saline] 1 ,000 ml IV ASDIRECTED 06/27/17 12:00 Piperacillin/Tazobactam/Dext [Zosyn in Dextrose Iso-Osmotic 3.375 GM] 3.375 gm Premix Bag 1 bag IV Q6H 06/28/17 05:00 BASIC METABOLIC PANEL,BMP [CHEM] Timed CBC WITH AUTO DIFF [HEME] Timed MAGNESIUM [CHEM] Timed TROPONIN I [CHEM] Timed 06/29/17 07:30 VANCOMYCIN TROUGH [CHEM] Timed - Plan Plan:: ASSESSMENT AND PLAN CELLULITIS LEFT FOOT WITH improved since admission, sepsis appears to have resolved with normalization of lactic acid level and vital signs. There has been improvement in the degree of swelling erythema and warmth of the foot. -Blood cultures pending -Normal saline 75 mL/h -Surgical follow-up per Dr. Zelaya -Broad-spectrum IV antibiotic therapy; vancomycin and Zosyn, pending culture results ELEVATED TROPONIN-likely demand ischemia in the setting of sepsis. Troponin level peaked at 0.37 and has come down since then -Repeat troponin level in a.m. -Consider cardiology follow-up after infection resolved PERIPHERAL ARTERIAL DISEASE -Continue outpatient management MAINTENANCE ISSUES -DVT prophylaxis; Lovenox 40 mg subcutaneous daily -GI prophylaxis; not indicated -Brothers catheter; not indicated -Nutrition; regular diet -Nicotine dependence; 7 mg nicotinic patch, nicotinic, as needed CODE STATUS-FULL CODE ADMISSION STATUS-patient will be admitted to inpatient status, expect at least a 2 night hospital stay for evaluation and management of problems as outlined above. At the time of this admission I do not reasonably expected evaluation and management of this problem will require more than a 96 hour hospital stay. DISPOSITION-anticipate discharge to home after the hospital stay. PRIMARY CARE PROVIDER-Dr. Liu
--- NOTE | 2017-06-27 10:40 | CR ---
No definitive periosteal reaction at the first digit or lytic lesion to suggest osteomyelitis. Hypert rophic change IP joints. Calcaneal heel spur.
[2017-06-27] MEDS: Piperacillin/Tazobactam/Dext 3.375 GM in Premix Bag 1 BAG IV SCH ×3 (11:32→23:07)
[2017-06-27] MEDS: Bacitracin Oint 28.35 GM Tube TOP SCH (13:06)
[2017-06-27] MEDS: Metoprolol Succinate 25 MG Tab.ER PO SCH (20:41)
[2017-06-27] MEDS: Cetirizine 10 MG Tab PO SCH (20:42)
[2017-06-27] MEDS: Simvastatin 20 MG Tab PO SCH (20:43)
[2017-06-27] MEDS: Clopidogrel 75 MG Tab PO SCH (20:43)
[2017-06-27] MEDS: Aspirin 81 MG Tab.EC PO SCH (20:43)
[2017-06-27] MEDS: ALPRAZolam 0.5 MG Tab PO PRN (20:46)
[2017-06-27] MEDS ORDERED: Metoprolol Succinate 25 MG Tab.ER PO SCH (21:00)
[2017-06-27] MEDS ORDERED: Clopidogrel 75 MG Tab PO SCH (21:00)
[2017-06-27] MEDS ORDERED: Simvastatin 20 MG Tab PO SCH (21:00)
[2017-06-27] MEDS ORDERED: Aspirin 81 MG Tab.EC PO SCH (21:00)
[2017-06-27] MEDS: Enoxaparin 40 MG/0.4 ML Syringe SUBCUT SCH (21:32)
[2017-06-28] MEDS: Docusate Sodium 100 MG Cap PO PRN ×3 (04:41→21:56)
[2017-06-28] MEDS: Acetaminophen/oxyCODONE 325-5 MG Tab PO PRN ×5 (04:42→21:54)
[2017-06-28] MEDS: Piperacillin/Tazobactam/Dext 3.375 GM in Premix Bag 1 BAG IV SCH ×4 (05:47→23:52)
[2017-06-28] MEDS: Nicotine 7 MG/24 Hr Patch TRDERM SCH (08:23)
[2017-06-28] MEDS: Pregabalin 100 MG Cap PO SCH ×3 (08:24→21:56)
[2017-06-28] MEDS: Bacitracin Oint 28.35 GM Tube TOP SCH (08:29)
--- NOTE | 2017-06-28 10:02 | PCM.PN ---
- General Info Date of Service: 06/28/17 Subjective Update: Mr. Houser has remained stable over the past 24 hours, troponin level remains mildly elevated and white blood cell count is elevated although improved from yesterday. Vital signs have been good and he has remained afebrile. Continues to experience some tenderness and pain especially in the first toe, otherwise cellulitis has improved significantly. - Review of Systems General: Reports: Weakness. Denies: Fever, Chills Pulmonary: Reports: No Symptoms Cardiovascular: Reports: No Symptoms Gastrointestinal: Reports: Nausea. Denies: Abdominal Pain, Difficulty Swallowing, Vomiting - Patient Data Vitals - Most Recent: Last Vital Signs Temp 98.9 F 06/28/17 07:27 Pulse 79 06/28/17 07:27 Resp 17 06/28/17 07:27 BP 129/68 06/28/17 07:27 Pulse Ox 96 06/28/17 07:27 Weight - Most Recent: 242 lb 1.081 oz I&O - Last 24 Hours: Intake & Output 06/27/17 06/28/17 06/28/17 22:59 06:59 14:59 Intake Total 1422 1620 Output Total 600 Balance 822 1620 Lab Results Last 24 Hours: Laboratory Results - last 24 hr 06/28/17 06/28/17 Range/Units 05:55 05:55 WBC 18.7 H (4.5-11.0) K/uL RBC 4.30 (4.30-5.90) M/uL Hgb 13.4 (12.0-15.0) g/dL Hct 38.9 L (40.0-54.0) % MCV 91 (80-98) fL MCH 31 (27-31) pg MCHC 34 (32-36) % Plt Count 243 (150-400) K/uL Neut % (Auto) 75 H (36-66) % Lymph % (Auto) 11 L (24-44) % [place] % (Auto) 14 H (2-6) % Eos % (Auto) 1 L (2-4) % Baso % (Auto) 0 (0-1) % Sodium 136 L (140-148) mmol/L Potassium 3.7 (3.6-5.2) mmol/L Chloride 103 (100-108) mmol/L Carbon Dioxide 24 (21-32) mmol/L Anion Gap 12.7 (5.0-14.0) mmol/L BUN 9 (7-18) mg/dL Creatinine 0.8 (0.8-1.3) mg/dL Est Cr Clr Drug Dosing 106.30 mL/min Estimated GFR (MDRD) > 60 (>60) Glucose 129 H (74-106) mg/dL Calcium 8.0 L (8.5-10.1) mg/dL Magnesium 2.0 (1.8-2.4) mg/dL Troponin I 0.294 H* (0.000-0.056) ng/mL Med Orders - Current: Current Medications Acetaminophen (Tylenol) 650 mg PO Q4H PRN PRN Reason: Pain (Mild 1-3)/fever Last Admin: 06/27/17 13:10 Dose: 325 mg Albuterol (Proventil Neb Soln) 2.5 mg NEB Q4H PRN PRN Reason: Shortness Of Breath/wheezing Alprazolam (Xanax) 0.5 mg PO QID PRN PRN Reason: Anxiety Last Admin: 06/27/17 20:46 Dose: 0.5 mg Aspirin (Halfprin) 81 mg PO BEDTIME [facility] Last Admin: 06/27/17 20:43 Dose: 81 mg Bacitracin (Bacitracin Oint) 0 gm TOP DAILY [facility] Last Admin: 06/28/17 08:29 Dose: 1 applic Cetirizine HCl (Zyrtec) 10 mg PO BEDTIME [facility] Last Admin: 06/27/17 20:42 Dose: 10 mg Clopidogrel Bisulfate (Plavix) 75 mg PO BEDTIME [facility] Last Admin: 06/27/17 20:43 Dose: 75 mg Docusate Sodium (Colace) 100 mg PO BID PRN PRN Reason: Constipation Last Admin: 06/28/17 08:24 Dose: 100 mg Enoxaparin Sodium (Lovenox) 40 mg SUBCUT Q24H [facility] Last Admin: 06/27/17 21:32 Dose: 40 mg Hydromorphone HCl (Dilaudid) 0.5 mg IVPUSH Q4H PRN PRN Reason: Pain Piperacillin/Tazobactam/ (Dextrose 3.375 gm/ Premix) 50 mls @ 100 mls/hr IV Q6H [facility] Last Admin: 06/28/17 05:47 Dose: 100 mls/hr Magnesium Hydroxide (Milk Of Magnesia) 30 ml PO Q12H PRN PRN Reason: Constipation Metoprolol Succinate (Toprol Xl) 25 mg PO BEDTIME [facility] Last Admin: 06/27/17 20:41 Dose: 25 mg Nicotine (Habitrol) 7 mg TRDERM DAILY [facility] Last Admin: 06/28/17 08:23 Dose: 7 mg Nicotine Polacrilex (Nicorelief) 4 mg PO ASDIRECTED PRN PRN Reason: Other Ondansetron HCl (Zofran) 4 mg IV Q4H PRN PRN Reason: Nausea/Vomiting Oxycodone/Acetaminophen (Percocet 325-5 Mg) 1 - 2 tab PO Q4H PRN PRN Reason: Pain Last Admin: 06/28/17 08:24 Dose: 1 tab Polyethylene Glycol (Miralax) 17 gm PO DAILY PRN PRN Reason: Constipation Pregabalin (Lyrica) 100 mg PO TID [facility] Last Admin: 06/28/17 08:24 Dose: 100 mg Simvastatin (Zocor) 80 mg PO BEDTIME [facility] Last Admin: 06/27/17 20:43 Dose: 80 mg Sodium Chloride (Saline Flush) 10 ml FLUSH ASDIRECTED PRN PRN Reason: Keep Vein Open Discontinued Medications Acetaminophen (Tylenol) 650 mg PO NOW ONE Stop: 06/26/17 21:37 Last Admin: 06/26/17 21:43 Dose: 650 mg Acetaminophen (Tylenol) Confirm Administered Dose 325 mg .ROUTE .STK-MED ONE Stop: 06/27/17 03:23 Last Admin: 06/27/17 05:04 Dose: Not Given Aspirin (Aspirin) 324 mg PO ONETIME ONE Stop: 06/26/17 17:39 Last Admin: 06/26/17 17:46 Dose: 324 mg Aspirin (Halfprin) 81 mg PO BEDTIME [facility] Clopidogrel Bisulfate (Plavix) 75 mg PO BEDTIME [facility] Hydromorphone HCl (Dilaudid) 0.5 mg IVPUSH ONETIME ONE Stop: 06/26/17 21:41 Last Admin: 06/26/17 21:45 Dose: 0.5 mg Sodium Chloride (Normal Saline) 1,000 mls @ 1,000 mls/hr IV ASDIRECTED [facility] Last Admin: 06/26/17 18:04 Dose: 1,000 mls/hr Piperacillin Sod/Tazobactam (Sod 4.5 gm/ Sodium Chloride) 100 mls @ 200 mls/hr IV NOW STA Stop: 06/26/17 18:35 Last Admin: 06/26/17 18:34 Dose: 200 mls/hr Vancomycin HCl 1 gm/ Sodium (Chloride) 250 mls @ 150 mls/hr IV ONETIME ONE Stop: 06/26/17 19:46 Last Admin: 06/26/17 19:08 Dose: 150 mls/hr Sodium Chloride (Normal Saline) 1,000 mls @ 1,000 mls/hr IV .BOLUS ONE Stop: 06/26/17 19:11 Last Admin: 06/26/17 18:33 Dose: 1,000 mls/hr Sodium Chloride (Normal Saline) 1,000 mls @ 250 mls/hr IV ASDIRECTED [facility] Last Admin: 06/26/17 20:36 Dose: 250 mls/hr Piperacillin Sod/Tazobactam (Sod 3.375 gm/ Sodium Chloride) 50 mls @ 100 mls/ hr IV Q6H [facility] Last Admin: 06/27/17 05:31 Dose: 100 mls/hr Sodium Chloride (Normal Saline) 1,000 mls @ 125 mls/hr IV ASDIRECTED [facility] Last Admin: 06/27/17 02:30 Dose: 125 mls/hr Sodium Chloride (Normal Saline) 1,000 mls @ 500 mls/hr IV Q2H [facility] Stop: 06/27/17 02:29 Last Admin: 06/27/17 00:30 Dose: 500 mls/hr Vancomycin HCl 1.75 gm/ Sodium (Chloride) 500 mls @ 250 mls/hr IV Q12H [facility] Vancomycin HCl 1.75 gm/ Sodium (Chloride) 250 mls @ 135 mls/hr IV Q12H [facility] Last Admin: 06/28/17 08:22 Dose: 135 mls/hr Magnesium Sulfate 2 gm/ Premix 50 mls @ 25 mls/hr IV Q6H [facility] Stop: 06/27/17 17:59 Last Admin: 06/27/17 16:24 Dose: 25 mls/hr Sodium Chloride (Normal Saline) 1,000 mls @ 75 mls/hr IV ASDIRECTED [facility] Last Admin: 06/27/17 18:24 Dose: 75 mls/hr Metoprolol Succinate (Toprol Xl) 25 mg PO BEDTIME [facility] Nitroglycerin (Nitrostat) 0.4 mg SL Q5M PRN PRN Reason: Chest Pain Last Admin: 06/26/17 18:02 Dose: 0.4 mg Pregabalin (Lyrica) 100 mg PO TID [facility] Simvastatin (Zocor) 80 mg PO BEDTIME [facility] Sodium Chloride (Saline Flush) 10 ml FLUSH ASDIRECTED PRN PRN Reason: Keep Vein Open Last Admin: 06/26/17 21:49 Dose: 10 ml - Exam General: Alert, Oriented, Cooperative, Mild Distress Lungs: Clear to Auscultation, Normal Respiratory Effort Cardiovascular: Regular Rate, Regular Rhythm, No Murmurs GI/Abdominal Exam: Soft, Non-Tender, No Organomegaly, No Distention Extremities: Increased Warmth, Redness Skin: Warm, Dry - Problem List Review Problem List Initiated/Reviewed/Updated: Yes - My Orders Last 24 Hours: My Active Orders 06/27/17 10:28 Consult to Physician [CONS] Routine 06/27/17 12:00 Piperacillin/Tazobactam/Dext [Zosyn in Dextrose Iso-Osmotic 3.375 GM] 3.375 gm Premix Bag 1 bag IV Q6H 06/28/17 09:56 Convert IV to Saline Lock [OM.PC] Routine 06/29/17 05:00 BASIC METABOLIC PANEL,BMP [CHEM] Timed CBC WITH AUTO DIFF [HEME] Timed MAGNESIUM [CHEM] Timed TROPONIN I [CHEM] Timed 06/29/17 07:30 VANCOMYCIN TROUGH [CHEM] Timed 06/29/17 08:00 Consult to PICC Team [CONS] Routine Central Line PICC Insertion [Central Venous Line Insertion] [OM.PC] Routine - Plan Plan:: ASSESSMENT AND PLAN CELLULITIS LEFT FOOT WITH SEPSIS- improved since admission, area of infection seems to be limited to the first toe at the present time. Blood cultures remain negative thus far -Blood cultures pending -Saline lock IV -Surgical follow-up per Dr. Zelaya -We'll discontinue vancomycin given negative cultures thus far -Continue Zosyn and plan for outpatient IV antibiotic therapy -PICC line placement tomorrow ELEVATED TROPONIN-likely demand ischemia in the setting of sepsis. Troponin remains elevated stable from yesterday at 0.29 -Repeat troponin level in a.m. -Consider cardiology follow-up after infection resolved PERIPHERAL ARTERIAL DISEASE -Continue outpatient management MAINTENANCE ISSUES -DVT prophylaxis; Lovenox 40 mg subcutaneous daily -GI prophylaxis; not indicated -Brothers catheter; not indicated -Nutrition; regular diet -Nicotine dependence; 7 mg nicotinic patch, nicotinic, as needed CODE STATUS-FULL CODE ADMISSION STATUS-patient will be admitted to inpatient status, expect at least a 2 night hospital stay for evaluation and management of problems as outlined above. At the time of this admission I do not reasonably expected evaluation and management of this problem will require more than a 96 hour hospital stay. DISPOSITION-anticipate discharge to home after the hospital stay. PRIMARY CARE PROVIDER-Dr. Liu
[2017-06-28] MEDS: Simvastatin 20 MG Tab PO SCH (21:56)
[2017-06-28] MEDS: Cetirizine 10 MG Tab PO SCH (21:57)
[2017-06-28] MEDS: Metoprolol Succinate 25 MG Tab.ER PO SCH (21:57)
[2017-06-28] MEDS: Clopidogrel 75 MG Tab PO SCH (21:57)
[2017-06-28] MEDS: Aspirin 81 MG Tab.EC PO SCH (21:57)
[2017-06-28] MEDS: Enoxaparin 40 MG/0.4 ML Syringe SUBCUT SCH (21:57)
[2017-06-29] MEDS: Acetaminophen/oxyCODONE 325-5 MG Tab PO PRN ×5 (04:12→17:42)
[2017-06-29] MEDS: Piperacillin/Tazobactam/Dext 3.375 GM in Premix Bag 1 BAG IV SCH (05:35)
[2017-06-29] MEDS: Bacitracin Oint 28.35 GM Tube TOP SCH ×2 (06:46→09:47)
[2017-06-29] MEDS: Pregabalin 100 MG Cap PO SCH ×3 (08:32→20:58)
[2017-06-29] MEDS: Nicotine 7 MG/24 Hr Patch TRDERM SCH (08:32)
--- NOTE | 2017-06-29 09:40 | PCM.PN ---
- General Info Date of Service: 06/29/17 Subjective Update: Mr. Houser is been stable over the past 24 hours, vital signs have been good and he has remained afebrile. Continues to experience some pain discomfort in his left foot. Functional Status: Reports: Pain Controlled, Tolerating Diet, Ambulating, Urinating - Review of Systems General: Denies: Fever, Chills Pulmonary: Reports: No Symptoms Cardiovascular: Reports: No Symptoms Gastrointestinal: Reports: No Symptoms Musculoskeletal: Reports: Foot Pain - Patient Data Vitals - Most Recent: Last Vital Signs Temp 98 F 06/29/17 07:57 Pulse 74 06/29/17 07:57 Resp 22 H 06/29/17 07:57 BP 110/49 L 06/29/17 07:57 Pulse Ox 98 06/29/17 07:57 Weight - Most Recent: 242 lb 3.2 oz I&O - Last 24 Hours: Intake & Output 06/28/17 06/29/17 06/29/17 22:59 06:59 14:59 Intake Total 240 580 Output Total 100 Balance 240 480 Lab Results Last 24 Hours: Laboratory Results - last 24 hr 06/29/17 06/29/17 06/29/17 Range/Units 07:36 07:36 07:36 WBC 15.7 H (4.5-11.0) K/uL RBC 4.28 L (4.30-5.90) M/uL Hgb 13.1 (12.0-15.0) g/dL Hct 38.9 L (40.0-54.0) % MCV 91 (80-98) fL MCH 31 (27-31) pg MCHC 34 (32-36) % Plt Count 286 (150-400) K/uL Neut % (Auto) 69 H (36-66) % Lymph % (Auto) 16 L (24-44) % [place] % (Auto) 12 H (2-6) % Eos % (Auto) 3 (2-4) % Baso % (Auto) 0 (0-1) % Sodium 137 L (140-148) mmol/L Potassium 3.8 (3.6-5.2) mmol/L Chloride 103 (100-108) mmol/L Carbon Dioxide 27 (21-32) mmol/L Anion Gap 10.8 (5.0-14.0) mmol/L BUN 11 (7-18) mg/dL Creatinine 0.9 (0.8-1.3) mg/dL Est Cr Clr Drug Dosing 94.49 mL/min Estimated GFR (MDRD) > 60 (>60) Glucose 115 H (74-106) mg/dL Calcium 8.2 L (8.5-10.1) mg/dL Magnesium 1.8 (1.8-2.4) mg/dL Troponin I 0.177 H* (0.000-0.056) ng/mL Vancomycin Trough 4.1 L (10.0-20.0) ug/mL Med Orders - Current: Current Medications Acetaminophen (Tylenol) 650 mg PO Q4H PRN PRN Reason: Pain (Mild 1-3)/fever Last Admin: 06/27/17 13:10 Dose: 325 mg Albuterol (Proventil Neb Soln) 2.5 mg NEB Q4H PRN PRN Reason: Shortness Of Breath/wheezing Alprazolam (Xanax) 0.5 mg PO QID PRN PRN Reason: Anxiety Last Admin: 06/29/17 00:00 Dose: 0.5 mg Aspirin (Halfprin) 81 mg PO BEDTIME [facility] Last Admin: 06/28/17 21:57 Dose: 81 mg Bacitracin (Bacitracin Oint) 0 gm TOP DAILY [facility] Last Admin: 06/29/17 06:46 Dose: 1 applic Cetirizine HCl (Zyrtec) 10 mg PO BEDTIME [facility] Last Admin: 06/28/17 21:57 Dose: 10 mg Clopidogrel Bisulfate (Plavix) 75 mg PO BEDTIME [facility] Last Admin: 06/28/17 21:57 Dose: 75 mg Docusate Sodium (Colace) 100 mg PO BID PRN PRN Reason: Constipation Last Admin: 06/28/17 21:56 Dose: 100 mg Enoxaparin Sodium (Lovenox) 40 mg SUBCUT Q24H [facility] Last Admin: 06/28/17 21:57 Dose: 40 mg Hydromorphone HCl (Dilaudid) 0.5 mg IVPUSH Q4H PRN PRN Reason: Pain Ertapenem 1 gm/ Sodium (Chloride) 100 mls @ 200 mls/hr IV DAILY [facility] Magnesium Hydroxide (Milk Of Magnesia) 30 ml PO Q12H PRN PRN Reason: Constipation Metoprolol Succinate (Toprol Xl) 25 mg PO BEDTIME [facility] Last Admin: 06/28/17 21:57 Dose: 25 mg Nicotine (Habitrol) 7 mg TRDERM DAILY [facility] Last Admin: 06/29/17 08:32 Dose: 7 mg Nicotine Polacrilex (Nicorelief) 4 mg PO ASDIRECTED PRN PRN Reason: Other Ondansetron HCl (Zofran) 4 mg IV Q4H PRN PRN Reason: Nausea/Vomiting Oxycodone/Acetaminophen (Percocet 325-5 Mg) 1 - 2 tab PO Q4H PRN PRN Reason: Pain Last Admin: 06/29/17 08:39 Dose: 1 tab Polyethylene Glycol (Miralax) 17 gm PO DAILY PRN PRN Reason: Constipation Pregabalin (Lyrica) 100 mg PO TID [facility] Last Admin: 06/29/17 08:32 Dose: 100 mg Simvastatin (Zocor) 80 mg PO BEDTIME [facility] Last Admin: 06/28/17 21:56 Dose: 80 mg Sodium Chloride (Saline Flush) 10 ml FLUSH ASDIRECTED PRN PRN Reason: Keep Vein Open Discontinued Medications Acetaminophen (Tylenol) 650 mg PO NOW ONE Stop: 06/26/17 21:37 Last Admin: 06/26/17 21:43 Dose: 650 mg Acetaminophen (Tylenol) Confirm Administered Dose 325 mg .ROUTE .STK-MED ONE Stop: 06/27/17 03:23 Last Admin: 06/27/17 05:04 Dose: Not Given Aspirin (Aspirin) 324 mg PO ONETIME ONE Stop: 06/26/17 17:39 Last Admin: 06/26/17 17:46 Dose: 324 mg Aspirin (Halfprin) 81 mg PO BEDTIME [facility] Clopidogrel Bisulfate (Plavix) 75 mg PO BEDTIME [facility] Hydromorphone HCl (Dilaudid) 0.5 mg IVPUSH ONETIME ONE Stop: 06/26/17 21:41 Last Admin: 06/26/17 21:45 Dose: 0.5 mg Sodium Chloride (Normal Saline) 1,000 mls @ 1,000 mls/hr IV ASDIRECTED [facility] Last Admin: 06/26/17 18:04 Dose: 1,000 mls/hr Piperacillin Sod/Tazobactam (Sod 4.5 gm/ Sodium Chloride) 100 mls @ 200 mls/hr IV NOW STA Stop: 06/26/17 18:35 Last Admin: 06/26/17 18:34 Dose: 200 mls/hr Vancomycin HCl 1 gm/ Sodium (Chloride) 250 mls @ 150 mls/hr IV ONETIME ONE Stop: 06/26/17 19:46 Last Admin: 06/26/17 19:08 Dose: 150 mls/hr Sodium Chloride (Normal Saline) 1,000 mls @ 1,000 mls/hr IV .BOLUS ONE Stop: 06/26/17 19:11 Last Admin: 06/26/17 18:33 Dose: 1,000 mls/hr Sodium Chloride (Normal Saline) 1,000 mls @ 250 mls/hr IV ASDIRECTED [facility] Last Admin: 06/26/17 20:36 Dose: 250 mls/hr Piperacillin Sod/Tazobactam (Sod 3.375 gm/ Sodium Chloride) 50 mls @ 100 mls/ hr IV Q6H [facility] Last Admin: 06/27/17 05:31 Dose: 100 mls/hr Sodium Chloride (Normal Saline) 1,000 mls @ 125 mls/hr IV ASDIRECTED [facility] Last Admin: 06/27/17 02:30 Dose: 125 mls/hr Sodium Chloride (Normal Saline) 1,000 mls @ 500 mls/hr IV Q2H [facility] Stop: 06/27/17 02:29 Last Admin: 06/27/17 00:30 Dose: 500 mls/hr Vancomycin HCl 1.75 gm/ Sodium (Chloride) 500 mls @ 250 mls/hr IV Q12H [facility] Piperacillin/Tazobactam/ (Dextrose 3.375 gm/ Premix) 50 mls @ 100 mls/hr IV Q6H [facility] Last Admin: 06/29/17 05:35 Dose: 100 mls/hr Vancomycin HCl 1.75 gm/ Sodium (Chloride) 250 mls @ 135 mls/hr IV Q12H [facility] Last Admin: 06/28/17 08:22 Dose: 135 mls/hr Magnesium Sulfate 2 gm/ Premix 50 mls @ 25 mls/hr IV Q6H [facility] Stop: 06/27/17 17:59 Last Admin: 06/27/17 16:24 Dose: 25 mls/hr Sodium Chloride (Normal Saline) 1,000 mls @ 75 mls/hr IV ASDIRECTED [facility] Last Admin: 06/27/17 18:24 Dose: 75 mls/hr Metoprolol Succinate (Toprol Xl) 25 mg PO BEDTIME [facility] Nitroglycerin (Nitrostat) 0.4 mg SL Q5M PRN PRN Reason: Chest Pain Last Admin: 06/26/17 18:02 Dose: 0.4 mg Pregabalin (Lyrica) 100 mg PO TID [facility] Simvastatin (Zocor) 80 mg PO BEDTIME [facility] Sodium Chloride (Saline Flush) 10 ml FLUSH ASDIRECTED PRN PRN Reason: Keep Vein Open Last Admin: 06/26/17 21:49 Dose: 10 ml - Exam Quality Assessment: DVT Prophylaxis General: Alert, Oriented, Cooperative, Mild Distress Lungs: Clear to Auscultation, Normal Respiratory Effort Cardiovascular: Regular Rate, Regular Rhythm, No Murmurs GI/Abdominal Exam: Soft, Non-Tender, No Organomegaly Extremities: No Pedal Edema, Increased Warmth, Redness Skin: Warm, Dry - Problem List Review Problem List Initiated/Reviewed/Updated: Yes - My Orders Last 24 Hours: My Active Orders 06/28/17 09:56 Convert IV to Saline Lock [OM.PC] Routine 06/29/17 08:00 Consult to PICC Team [CONS] Routine Central Line PICC Insertion [Central Venous Line Insertion] [OM.PC] Routine 06/29/17 09:32 Discontinue Telemetry Monitoring [Cardiac Monitoring Discontinue] [RC] Click to Edit 06/29/17 09:45 Ertapenem [INVanz] 1 gm Sodium Chloride 0.9% [Normal Saline] 100 ml IV DAILY 06/30/17 05:00 BASIC METABOLIC PANEL,BMP [CHEM] Timed CBC WITH AUTO DIFF [HEME] Timed - Plan Plan:: ASSESSMENT AND PLAN CELLULITIS LEFT FOOT WITH SEPSIS- improved since admission, area of infection seems to be limited to the first toe at the present time. Blood cultures remain negative thus far -Blood cultures pending -Saline lock IV -Surgical follow-up per Dr. Zelaya -Switch to IV ertapenem for outpatient therapy -PICC line placement today ELEVATED TROPONIN-likely demand ischemia in the setting of sepsis. Troponin improved today to 0.177 -Repeat troponin level in a.m. -cardiology follow-up after infection resolved PERIPHERAL ARTERIAL DISEASE -Continue outpatient management MAINTENANCE ISSUES -DVT prophylaxis; Lovenox 40 mg subcutaneous daily -GI prophylaxis; not indicated -Brothers catheter; not indicated -Nutrition; regular diet -Nicotine dependence; 7 mg nicotinic patch, nicotinic, as needed CODE STATUS-FULL CODE ADMISSION STATUS-patient will be admitted to inpatient status, expect at least a 2 night hospital stay for evaluation and management of problems as outlined above. At the time of this admission I do not reasonably expected evaluation and management of this problem will require more than a 96 hour hospital stay. DISPOSITION-anticipate discharge to home after the hospital stay. PRIMARY CARE PROVIDER-Dr. Liu
[2017-06-29] MEDS: Ertapenem 1 GM in Sodium Chloride 0.9% 100 ML IV SCH (10:10)
--- NOTE | 2017-06-29 12:31 | CR ---
OR PCXR-No Charge-PICC/Central HISTORY: check picc placement FINDINGS: Portable chest, 1213 hours. PICC line has been placed from a left brachial approach. Tip of the catheter is looped in the mid SVC . There is no pneumothorax or mediastinal widening. No acute infiltrate is identified. Heart size is felt to be borderline enlarged. Old median sternotomy changes are noted. IMPRESSION: Malpositioned PICC line with the tip looped in the mid superior vena cava. This needs to be pulled back at least 10 cm and reinserted.
--- NOTE | 2017-06-29 12:53 | CR ---
OR PCXR-No Charge-PICC/Central HISTORY: recheck placement FINDINGS: Portable chest, 1235 hours. This is the second post PICC line placement chest radiograph. The tip is no longer coiled in the SVC. Tip overlies the SVC at about the level of the right hilum. There is no pneumothorax or other compli cation. Lungs are clear. Cardiomediastinal silhouette is stable. Old median sternotomy changes are no kirstin. IMPRESSION: Tip of the PICC line is now in satisfactory position overlying the SVC at about the level of the right hilum.
[2017-06-29] MEDS: Aspirin 81 MG Tab.EC PO SCH (20:58)
[2017-06-29] MEDS: Cetirizine 10 MG Tab PO SCH (20:58)
[2017-06-29] MEDS: Simvastatin 20 MG Tab PO SCH (20:59)
[2017-06-29] MEDS: Metoprolol Succinate 25 MG Tab.ER PO SCH (20:59)
[2017-06-29] MEDS: Clopidogrel 75 MG Tab PO SCH (20:59)
[2017-06-29] MEDS: Enoxaparin 40 MG/0.4 ML Syringe SUBCUT SCH ×2 (20:59→21:06)
[2017-06-29] MEDS: ALPRAZolam 0.5 MG Tab PO PRN ×2 (21:05)
[2017-06-30] MEDS: Acetaminophen/oxyCODONE 325-5 MG Tab PO PRN ×3 (01:01→09:08)
[2017-06-30 08:14] VITALS: BP 111/67
[2017-06-30] MEDS: Nicotine 7 MG/24 Hr Patch TRDERM SCH (08:17)
[2017-06-30] MEDS: Pregabalin 100 MG Cap PO SCH (08:17)
[2017-06-30] MEDS: Bacitracin Oint 28.35 GM Tube TOP SCH (08:18)
[2017-06-30] MEDS: Ertapenem 1 GM in Sodium Chloride 0.9% 100 ML IV SCH (09:42)
--- NOTE | 2017-06-30 10:06 | PCM.DCSUM1 ---
Discharge Summary - Hospital Course Brief History: Mr. Houser is a 61-year-old gentleman who was admitted through the emergency department with sepsis secondary to cellulitis of his left lower extremity. - Discharge Data Discharge Date: 06/30/17 Discharge Disposition: Home, Self-Care 01 Condition: Fair - Discharge Diagnosis/Problem(s) (1) Sepsis SNOMED Code(s): 12278544 ICD Code: A41.9 - SEPSIS, UNSPECIFIED ORGANISM Status: Acute Current Visit: Yes Qualifiers: Sepsis type: sepsis due to unspecified organism Qualified Code(s): A41.9 - Sepsis, unspecified organism (2) Cellulitis SNOMED Code(s): 374968497 ICD Code: L03.90 - CELLULITIS, UNSPECIFIED Status: Acute Current Visit: Yes Qualifiers: Site of cellulitis: extremity Site of cellulitis of extremity: lower extremity Laterality: left Qualified Code(s): L03.116 - Cellulitis of left lower limb (3) Elevated troponin SNOMED Code(s): 976184582, 100048034 ICD Code: R74.8 - ABNORMAL LEVELS OF OTHER SERUM ENZYMES Status: Acute Current Visit: Yes (4) PAD (peripheral artery disease) SNOMED Code(s): 683707722 ICD Code: I73.9 - PERIPHERAL VASCULAR DISEASE, UNSPECIFIED Status: Chronic Current Visit: No (5) CAD (coronary artery disease) SNOMED Code(s): 97486061 ICD Code: I25.10 - ATHSCL HEART DISEASE OF [place] CORONARY ARTERY W/O ANG PCTRS Status: Chronic Current Visit: No - Patient Summary/Data Consults: Consultations 06/26/17 22:03 PT Evaluation and Treatment [CONS] Routine Please Evaluate and Treat. PT Reason for Consult: Ambulation This query below is only for informational purposes and is not editable. 06/27/17 10:28 Consult to Physician [CONS] Routine Consulting Provider: Ryan Zelaya Call Completed to Consulting Physician: Yes Reason for Consult: Cellulitis left lower extremity, peripheral arterial disease 06/29/17 08:00 Consult to PICC Team [CONS] Routine Comment: Physician Instructions: Hospital Course: Mr. Houser is a 61-year-old gentleman with a known history of coronary artery disease as well as peripheral arterial disease. He had injured his left first toe approximately one week prior to admission, over a period of a few days prior to admission noted pain in the left leg. For 24 hours prior to admission developed fever chills sweats as well as increased erythema and swelling of the left foot. Because of significant weakness associated with anorexia and fever he was brought into the emergency department for further evaluation. He was noted to be tachycardic and did have a modest elevation in lactic acid level consistent with sepsis. There was significant erythema of the left foot with some drainage from the left first toe. Blood cultures were obtained and he was started on broad-spectrum IV antibiotic therapy with vancomycin and meropenem. Troponin was found to be elevated in the emergency department and was repeated after 2 hours increasing only mildly. This was felt to be secondary to demand ischemia in the setting of sepsis. Troponin levels were monitored throughout the hospital course it did increase again mildly after admission and then from that point slowly decreased but had not quite normalized by the time of discharge. He had no further symptoms of chest pain or pressure and denies any symptoms of chest pain or pressure at home with activity. Blood cultures were obtained at the time of admission and remained negative throughout the hospital stay. His white blood cell count was elevated on admission and improved through hospitalization but had not yet normalized by the time of discharge. He was seen and evaluated by Dr. Zelaya, x-rays were obtained and showed no evidence of osteomyelitis. Dr. Zelaya is recommended 3 weeks of IV antibiotic therapy with Invanz. Follow-up appointment will be scheduled with Dr. Zelaya in 2 weeks. Because of the elevated troponin and his known history of underlying coronary artery disease cardiology follow-up will be scheduled for him in [facility]. They will assess cardiac status and also look at his peripheral arterial disease to see if there is anything that can be done for revascularization of the left leg. Follow-up appointment will be scheduled with primary care provider within one week. Activity will be as tolerated and he will resume his usual diet. He is been instructed to stop all nicotinic use except for nicotine patch and nicotene gum as needed. Follow-up laboratory studies will be obtained on July 04 including a BMP and CBC. - Patient Instructions Diet: Heart Healthy Diet Activity: As Tolerated Other/Special Instructions: Invanz 1 g IV every 24 hours for 19 days after discharge. Please schedule follow-up appointment with Dr. Zelaya in 2 weeks. Please schedule follow-up appointment with primary care provider within one week. Please schedule cardiology consult in [facility] for further evaluation of coronary artery disease and peripheral arterial disease. - Discharge Plan Prescriptions/Med Rec: Ertapenem [INVanz] 1 gm IV Q24H #19 vial Lactobacillus Acidophilus [Acidophilus Lactobacilli] 1 each PO BID #60 capsule Nicotine [Habitrol] 7 mg TRDERM DAILY #28 patch Home Medications: Home Meds ALPRAZolam [Xanax] 0.5 mg PO QID PRN 05/16/16 [History] Aspirin [Halfprin] 81 mg PO BEDTIME 05/16/16 [History] Cetirizine [ZyrTEC] 10 mg PO BEDTIME 05/16/16 [History] Clopidogrel [Plavix] 75 mg PO BEDTIME 05/16/16 [History] Metoprolol Succinate [Toprol XL] 25 mg PO BEDTIME 05/16/16 [History] Nicotine Polacrilex [Nicotine Gum] 4 mg BC ASDIRECTED PRN 05/16/16 [History] Pregabalin [Lyrica] 100 mg PO TID 05/16/16 [History] Simvastatin [Zocor] 80 mg PO BEDTIME 05/16/16 [History] oxyCODONE HCl/Acetaminophen [Endocet 5-325 Tablet] 1 - 2 each PO Q4H PRN [History] Ertapenem [INVanz] 1 gm IV Q24H #19 vial 06/30/17 [Rx] Lactobacillus Acidophilus [Acidophilus Lactobacilli] 1 each PO BID #60 capsule 06/30/17 [Rx] Nicotine [Habitrol] 7 mg TRDERM DAILY #28 patch 06/30/17 [Rx] Forms: ED Department Discharge Referrals: Daniel Liu MD [Primary Care Provider] - - Patient Data Vitals - Most Recent: Last Vital Signs Temp 97.2 F 06/30/17 08:12 Pulse 74 06/30/17 08:12 Resp 20 06/30/17 08:12 BP 111/67 06/30/17 08:12 Pulse Ox 96 06/30/17 08:12 Weight - Most Recent: 242 lb 3.2 oz I&O - Last 24 hours: Intake & Output 06/29/17 06/30/17 06/30/17 22:59 06:59 14:59 Intake Total 100 Balance 100 Lab Results - Last 24 hrs: Laboratory Results - last 24 hr 06/30/17 06/30/17 Range/Units 05:53 05:53 WBC 14.6 H (4.5-11.0) K/uL RBC 4.41 (4.30-5.90) M/uL Hgb 13.7 (12.0-15.0) g/dL Hct 39.7 L (40.0-54.0) % MCV 90 (80-98) fL MCH 31 (27-31) pg MCHC 35 (32-36) % Plt Count 340 (150-400) K/uL Neut % (Auto) 67 H (36-66) % Lymph % (Auto) 19 L (24-44) % [place] % (Auto) 12 H (2-6) % Eos % (Auto) 2 (2-4) % Baso % (Auto) 0 (0-1) % Sodium 138 L (140-148) mmol/L Potassium 4.4 (3.6-5.2) mmol/L Chloride 102 (100-108) mmol/L Carbon Dioxide 28 (21-32) mmol/L Anion Gap 12.4 (5.0-14.0) mmol/L BUN 10 (7-18) mg/dL Creatinine 0.8 (0.8-1.3) mg/dL Est Cr Clr Drug Dosing 106.30 mL/min Estimated GFR (MDRD) > 60 (>60) Glucose 126 H (74-106) mg/dL Calcium 8.6 (8.5-10.1) mg/dL Troponin I 0.137 H* (0.000-0.056) ng/mL Med Orders - Current: Current Medications Acetaminophen (Tylenol) 650 mg PO Q4H PRN PRN Reason: Pain (Mild 1-3)/fever Last Admin: 06/27/17 13:10 Dose: 325 mg Albuterol (Proventil Neb Soln) 2.5 mg NEB Q4H PRN PRN Reason: Shortness Of Breath/wheezing Alprazolam (Xanax) 0.5 mg PO QID PRN PRN Reason: Anxiety Last Admin: 06/29/17 21:05 Dose: 0.5 mg Aspirin (Halfprin) 81 mg PO BEDTIME KEISHA Last Admin: 06/29/17 20:58 Dose: 81 mg Bacitracin (Bacitracin Oint) 0 gm TOP DAILY ON LICENSE OF [facility] Last Admin: 06/30/17 08:18 Dose: 1 applic Cetirizine HCl (Zyrtec) 10 mg PO BEDTIME ON LICENSE OF [facility] Last Admin: 06/29/17 20:58 Dose: 10 mg Clopidogrel Bisulfate (Plavix) 75 mg PO BEDTIME ON LICENSE OF [facility] Last Admin: 06/29/17 20:59 Dose: 75 mg Docusate Sodium (Colace) 100 mg PO BID PRN PRN Reason: Constipation Last Admin: 06/28/17 21:56 Dose: 100 mg Enoxaparin Sodium (Lovenox) 40 mg SUBCUT Q24H ON LICENSE OF [facility] Last Admin: 06/29/17 21:06 Dose: Not Given Hydromorphone HCl (Dilaudid) 0.5 mg IVPUSH Q4H PRN PRN Reason: Pain Ertapenem 1 gm/ Sodium (Chloride) 100 mls @ 200 mls/hr IV Q24H ON LICENSE OF [facility] Last Admin: 06/30/17 09:42 Dose: 200 mls/hr Magnesium Hydroxide (Milk Of Magnesia) 30 ml PO Q12H PRN PRN Reason: Constipation Metoprolol Succinate (Toprol Xl) 25 mg PO BEDTIME ON LICENSE OF [facility] Last Admin: 06/29/17 20:59 Dose: 25 mg Nicotine (Habitrol) 7 mg TRDERM DAILY ON LICENSE OF [facility] Last Admin: 06/30/17 08:17 Dose: 7 mg Nicotine Polacrilex (Nicorelief) 4 mg PO ASDIRECTED PRN PRN Reason: Other Ondansetron HCl (Zofran) 4 mg IV Q4H PRN PRN Reason: Nausea/Vomiting Oxycodone/Acetaminophen (Percocet 325-5 Mg) 1 - 2 tab PO Q4H PRN PRN Reason: Pain Last Admin: 06/30/17 09:08 Dose: 1 tab Polyethylene Glycol (Miralax) 17 gm PO DAILY PRN PRN Reason: Constipation Pregabalin (Lyrica) 100 mg PO TID ON LICENSE OF [facility] Last Admin: 06/30/17 08:17 Dose: 100 mg Simvastatin (Zocor) 80 mg PO BEDTIME ON LICENSE OF [facility] Last Admin: 06/29/17 20:59 Dose: 80 mg Sodium Chloride (Saline Flush) 10 ml FLUSH ASDIRECTED PRN PRN Reason: Keep Vein Open Discontinued Medications Acetaminophen (Tylenol) 650 mg PO NOW ONE Stop: 06/26/17 21:37 Last Admin: 06/26/17 21:43 Dose: 650 mg Acetaminophen (Tylenol) Confirm Administered Dose 325 mg .ROUTE .STK-MED ONE Stop: 06/27/17 03:23 Last Admin: 06/27/17 05:04 Dose: Not Given Aspirin (Aspirin) 324 mg PO ONETIME ONE Stop: 06/26/17 17:39 Last Admin: 06/26/17 17:46 Dose: 324 mg Aspirin (Halfprin) 81 mg PO BEDTIME KEISHA Clopidogrel Bisulfate (Plavix) 75 mg PO BEDTIME KEISHA Hydromorphone HCl (Dilaudid) 0.5 mg IVPUSH ONETIME ONE Stop: 06/26/17 21:41 Last Admin: 06/26/17 21:45 Dose: 0.5 mg Sodium Chloride (Normal Saline) 1,000 mls @ 1,000 mls/hr IV ASDIRECTED ON LICENSE OF [facility] Last Admin: 06/26/17 18:04 Dose: 1,000 mls/hr Piperacillin Sod/Tazobactam (Sod 4.5 gm/ Sodium Chloride) 100 mls @ 200 mls/hr IV NOW STA Stop: 06/26/17 18:35 Last Admin: 06/26/17 18:34 Dose: 200 mls/hr Vancomycin HCl 1 gm/ Sodium (Chloride) 250 mls @ 150 mls/hr IV ONETIME ONE Stop: 06/26/17 19:46 Last Admin: 06/26/17 19:08 Dose: 150 mls/hr Sodium Chloride (Normal Saline) 1,000 mls @ 1,000 mls/hr IV .BOLUS ONE Stop: 06/26/17 19:11 Last Admin: 06/26/17 18:33 Dose: 1,000 mls/hr Sodium Chloride (Normal Saline) 1,000 mls @ 250 mls/hr IV ASDIRECTED ON LICENSE OF [facility] Last Admin: 06/26/17 20:36 Dose: 250 mls/hr Piperacillin Sod/Tazobactam (Sod 3.375 gm/ Sodium Chloride) 50 mls @ 100 mls/ hr IV Q6H ON LICENSE OF [facility] Last Admin: 06/27/17 05:31 Dose: 100 mls/hr Sodium Chloride (Normal Saline) 1,000 mls @ 125 mls/hr IV ASDIRECTED ON LICENSE OF [facility] Last Admin: 06/27/17 02:30 Dose: 125 mls/hr Sodium Chloride (Normal Saline) 1,000 mls @ 500 mls/hr IV Q2H ON LICENSE OF [facility] Stop: 06/27/17 02:29 Last Admin: 06/27/17 00:30 Dose: 500 mls/hr Vancomycin HCl 1.75 gm/ Sodium (Chloride) 500 mls @ 250 mls/hr IV Q12H ON LICENSE OF [facility] Piperacillin/Tazobactam/ (Dextrose 3.375 gm/ Premix) 50 mls @ 100 mls/hr IV Q6H ON LICENSE OF [facility] Last Admin: 06/29/17 05:35 Dose: 100 mls/hr Vancomycin HCl 1.75 gm/ Sodium (Chloride) 250 mls @ 135 mls/hr IV Q12H ON LICENSE OF [facility] Last Admin: 06/28/17 08:22 Dose: 135 mls/hr Magnesium Sulfate 2 gm/ Premix 50 mls @ 25 mls/hr IV Q6H ON LICENSE OF [facility] Stop: 06/27/17 17:59 Last Admin: 06/27/17 16:24 Dose: 25 mls/hr Sodium Chloride (Normal Saline) 1,000 mls @ 75 mls/hr IV ASDIRECTED ON LICENSE OF [facility] Last Admin: 06/27/17 18:24 Dose: 75 mls/hr Metoprolol Succinate (Toprol Xl) 25 mg PO BEDTIME ON LICENSE OF [facility] Nitroglycerin (Nitrostat) 0.4 mg SL Q5M PRN PRN Reason: Chest Pain Last Admin: 06/26/17 18:02 Dose: 0.4 mg Pregabalin (Lyrica) 100 mg PO TID ON LICENSE OF [facility] Simvastatin (Zocor) 80 mg PO BEDTIME ON LICENSE OF [facility] Sodium Chloride (Saline Flush) 10 ml FLUSH ASDIRECTED PRN PRN Reason: Keep Vein Open Last Admin: 06/26/17 21:49 Dose: 10 ml *Q Meaningful Use (DIS) - VTE *Q VTE Criteria *Q: - Stroke *Q Stroke Criteria *Q: - AMI *Q AMI Criteria *Q:
== END 2017-06-30 13:10 | disposition home or self-care (01) | DRG 720 ==
LOC: JP.ED 17:18 → JP.ICU 21:41
PROVIDERS: ADMIT Hospitalist; ATTEND Hospitalist
PROC: 02HV33Z Insertion of Infusion Device into Superior Vena Cava, Percutaneous Approach (ICD-10-PCS; principal; 2017-06-29)
DX: A41.9 Sepsis, unspecified organism (principal); L03.116 Cellulitis of left lower limb; R74.8 Abnormal levels of other serum enzymes; I25.810 Atherosclerosis of coronary artery bypass graft(s) without angina pectoris; F17.210 Nicotine dependence, cigarettes, uncomplicated; Z95.5 Presence of coronary angioplasty implant and graft; I48.91 Unspecified atrial fibrillation; I25.2 Old myocardial infarction; I73.9 Peripheral vascular disease, unspecified; G62.9 Polyneuropathy, unspecified; J44.9 Chronic obstructive pulmonary disease, unspecified; F41.9 Anxiety disorder, unspecified; Z96.651 Presence of right artificial knee joint
CPT/HCPCS: 36415; 36569; 71010; 71010-26; 73620-26-LT; 73620-LT; 80048; 80202; 81001; 83605; 83735; 83880; 84484; 85025; 85027; 86140; 87040; 93005; 96361; 96365; 96366; 96367; 96375; 97116-GP; 97162-GP; 97530-GP; 99285-25; A9270-GY; C1751; J1170; J1335; J1650; J2543; J3370; J3475; J7030; J7040; J7050

== ENCOUNTER 2017-07-25 11:13 | Day surgery (SDC) | payer BC, MEDICARE ==
[~2017-07-25 11:13] MED LIST: Bupivacaine 0.5% 30 ML SDV ONE; Lactated Ringers 1,000 ML IV SCH; Lidocaine 2% 20 ML MDV ONE
[2017-07-25] MEDS ORDERED: Midazolam 1 MG/ML 2 ML SDV ONE (11:23)
[2017-07-25] MEDS ORDERED: Propofol 200 MG/20 ML SDV ONE ×2 (11:23→12:40)
[2017-07-25] MEDS ORDERED: fentaNYL 100 MCG/2 ML SDV ONE (11:23)
[2017-07-25] MEDS ORDERED: Acetaminophen/oxyCODONE 325-5 MG Tab PO PRN (15:28)
[2017-07-25 15:37] VITALS: BP 118/72
--- NOTE | 2017-07-26 09:22 | OR ---
DATE OF PROCEDURE: 07/25/2017 SURGEON: Denilson Gonsalez MD CORRESPONDENCE CLERK: Roro Stack MS-3 PREOPERATIVE DIAGNOSIS: Osteomyelitis, left great toe. POSTOPERATIVE DIAGNOSIS: Osteomyelitis, left great toe. PROCEDURE: Amputation of the left great toe. ANESTHESIA: Local with IV sedation. Hemostasis was obtained with an ankle tourniquet on the left ankle at 250 mmHg. ESTIMATED BLOOD LOSS: 5 mL. MATERIALS: None. INJECTABLES: 20 mL of 1:1 mixture of lidocaine 2% plain and Marcaine 0.5% plain were injected prior to prep. PATHOLOGY: Left great toe sent. CONDITION: Stable. INDICATIONS FOR SURGERY: Osteomyelitis of the left great toe. PROCEDURE IN DETAIL: The patient was brought into the operating room and placed on the operating table in supine position. Following IV sedation, anesthesia was obtained with a total of 20 mL of 1:1 mixture of lidocaine 2% plain and Marcaine 0.5% plain. The left foot was then scrubbed, prepped, and draped in the usual aseptic manner, raised to 60 degrees for hemostasis. Tourniquet was inflated. Esmarch bandage was not used. The incision was drawn out around the base of the left great toe and then slightly distal on the plantar aspect of the toe, with care taken to excise all infected tissue. Incision was taken straight down to bone and removed at the metatarsophalangeal joint. The extensor and flexor tendons were resected, the medial and lateral collateral ligaments and joint capsule were resected, and the left great toe was disarticulated from the foot, and then we found that there were healthy margins with no signs of infection and healthy bleeding tissue. The first metatarsal head was solid and had no signs of osteomyelitis. The incision was flushed out with copious amounts of sterile saline, and then the skin closure was obtained with 3-0 nylon in a simple interrupted configuration and then the foot was dressed with Xeroform, 4x4s, Kerlix, and Coban. The patient was returned to the recovery room with vital signs stable and vascular status intact to both feet. The patient was told to maintain strict nonweightbearing on the left foot for at least three weeks, in order to allow the incision to heal. The patient was told to follow up with Dr. Gonsalez in one week and continue his IV antibiotics per Dr. Zelaya and to keep dressings clean, dry, and intact. I gave him a prescription for [place] 5/325 mg 1-2 tabs p.o. q.4-6 h. p.r.n. pain, dispensed #20. Denilson Gonsalez DPM /[id number] MTDD
== END 2017-07-25 16:17 | disposition home or self-care (01) ==
LOC: JP.SDS 11:13
PROVIDERS: ATTEND Podiatrist Foot & Ankle Surgery
DX: M86.8X7 Other osteomyelitis, ankle and foot (principal); I73.9 Peripheral vascular disease, unspecified; I10 Essential (primary) hypertension; E78.2 Mixed hyperlipidemia; I25.10 Atherosclerotic heart disease of native coronary artery without angina pectoris; Z95.1 Presence of aortocoronary bypass graft; Z87.891 Personal history of nicotine dependence; Z79.82 Long term (current) use of aspirin; Z79.899 Other long term (current) drug therapy; F41.9 Anxiety disorder, unspecified; I25.2 Old myocardial infarction; J44.9 Chronic obstructive pulmonary disease, unspecified
CPT/HCPCS: 28820; A9270; J2250; J2704; J3010; J7120; 88305; 88311

== ENCOUNTER 2018-08-23 21:01 | Emergency (ER) | payer BC, MEDICARE ==
[2018-08-23 23:09] VITALS: BP 150/86
[2018-08-24] MEDS ORDERED: Sodium Chloride 0.9% 10 ML Syringe FLUSH PRN (00:38)
[2018-08-24] MEDS ORDERED: Piperacillin/Tazobactam 3.375 GM in Sodium Chloride 0.9% 50 ML IV SCH (00:45)
--- NOTE | 2018-08-24 00:52 | EDM.PDOC ---
ED HPI GENERAL MEDICAL PROBLEM - General Chief Complaint: Lower Extremity Injury/Pain Stated Complaint: LEFT FOOT SWELLING Time Seen by Provider: 08/23/18 21:25 Source of Information: Reports: Patient, Family History Limitations: Reports: No Limitations - History of Present Illness INITIAL COMMENTS - FREE TEXT/NARRATIVE: pt arrived with a swollen red 2nd toe on the left. He has noted this for the past 2 days. Today he is noting drainage. He has had his grezat toe amputated for a similar issue. Onset: Other ( last 2 days there have been drainage. ) Duration: Hour(s): Location: Reports: Lower Extremity, Left Associated Symptoms: Reports: Other (pt has not felt systemicly ill. ) left 2nd toe Pain Score (Numeric/FACES): 6 - Related Data Allergies Allergy/AdvReac Type Severity Reaction Status Date / Time No Known Allergies Allergy Verified 08/24/18 00:12 Home Meds: Home Meds ALPRAZolam [Xanax] 0.5 mg PO QID PRN 05/16/16 [History] Aspirin [Halfprin] 81 mg PO BEDTIME 05/16/16 [History] Cetirizine [ZyrTEC] 10 mg PO BEDTIME 05/16/16 [History] Clopidogrel [Plavix] 75 mg PO BEDTIME 05/16/16 [History] Metoprolol Succinate [Toprol XL] 25 mg PO BEDTIME 05/16/16 [History] Nicotine Polacrilex [Nicotine Gum] 4 mg BC ASDIRECTED PRN 05/16/16 [History] Pregabalin [Lyrica] 100 mg PO TID 05/16/16 [History] Simvastatin [Zocor] 80 mg PO BEDTIME 05/16/16 [History] oxyCODONE HCl/Acetaminophen [Endocet 5-325 Tablet] 1 - 2 each PO Q4H PRN [History] Lactobacillus Acidophilus [Acidophilus Lactobacilli] 1 each PO BID #60 capsule 06/30/17 [Rx] Nicotine [Habitrol] 7 mg TRDERM DAILY #28 patch 06/30/17 [Rx] Isosorbide Mononitrate [Imdur] 30 mg PO DAILY 07/25/17 [History] Vancomycin/0.9 % Sod Chloride [Vancomycin 1 G/100Ml-0.9% NaCl] 1,750 mg IV BID 07/25/17 [History] Past Medical History HEENT History: Reports: Hard of Hearing, Other (See Below) Other HEENT History: ruptured ear drums Cardiovascular History: Reports: Afib, Bypass, CAD, AL, PVD, SOB on Exertion, Stents Respiratory History: Reports: COPD Gastrointestinal History: Reports: None Genitourinary History: Reports: None Musculoskeletal History: Reports: Other (See Below) Other Musculoskeletal History: right knee Neurological History: Reports: Neuropathy, Peripheral Psychiatric History: Reports: Anxiety Endocrine/Metabolic History: Reports: Obesity/BMI 30+ Hematologic History: Reports: Blood Transfusion(s), Other (See Below) Other Hematologic History: reaction to blood transfusion - "antibodies" Immunologic History: Reports: None Oncologic (Cancer) History: Reports: None Dermatologic History: Reports: Other (See Below) Other Dermatologic History: left great toe ulcer - Infectious Disease History Infectious Disease History: Reports: Chicken Pox - Past Surgical History HEENT Surgical History: Reports: Tonsillectomy Cardiovascular Surgical History: Reports: Coronary Artery Bypass, Coronary Artery Stent, Vascular Surgery, Other (See Below) Other Cardiovascular Surgeries/Procedures: "attempted vascular surgery" was unsuccessful. GI Surgical History: Reports: Appendectomy, Colonoscopy, Hernia, Abdominal, Polypectomy Neurological Surgical History: Reports: Laminectomy, Lumbar Spine, Spinal Fusion , Other (See Below) Other Neurological Surgeries/Procedures: alif surgery Musculoskeletal Surgical History: Reports: Knee Replacement Social & Family History - Family History Family Medical History: Noncontributory - Caffeine Use Caffeine Use: Reports: Coffee Review of Systems - Review of Systems Review Of Systems: See Below Constitutional: Reports: No Symptoms Eyes: Reports: No Symptoms Ears: Reports: No Symptoms Nose: Reports: No Symptoms Mouth/Throat: Reports: No Symptoms Respiratory: Reports: No Symptoms Cardiovascular: Reports: No Symptoms GI/Abdominal: Reports: No Symptoms Genitourinary: Reports: No Symptoms Musculoskeletal: Reports: Other ( swollen red 2nd toe on the left. ) ED EXAM, GENERAL - Physical Exam Exam: See Below Free Text/Narrative:: pt arrived with pain in the rt 2nd toe which is red and swollen and has drainage coming from it. Exam Limited By: No Limitations General Appearance: Alert, Anxious, Mild Distress Extremities: Other ( second toe on the left has drainage from it and it is red and swollen. ) Neurological: Alert, Oriented, Normal Cognition Course - Vital Signs Last Recorded V/S: Last Vital Signs Temp 35.8 C 08/24/18 00:16 Pulse 79 08/24/18 00:16 Resp 16 08/24/18 00:16 BP 150/86 H 08/24/18 00:16 Pulse Ox 98 08/24/18 00:16 - Orders/Labs/Meds Orders: Active Orders 24 hr Category Date Time Status Piperacillin/Tazobactam [Zosyn] 3.375 gm Med 08/24/18 00:45 Active Sodium Chloride 0.9% [Normal Saline] 50 ml IV Q6H Sodium Chloride 0.9% [Saline Flush] Med 08/24/18 00:38 Active 10 ml FLUSH ASDIRECTED PRN Saline Lock Insert [OM.PC] Routine Oth 08/24/18 00:38 Ordered Medication Orders Piperacillin Sod/Tazobactam (Sod 3.375 gm/ Sodium Chloride) 50 mls @ 100 mls/ hr IV Q6H KEISHA Last Admin: 08/24/18 01:13 Dose: 100 mls/hr Sodium Chloride (Saline Flush) 10 ml FLUSH ASDIRECTED PRN PRN Reason: Keep Vein Open Last Admin: 08/24/18 01:13 Dose: 10 ml Labs: Laboratory Tests 08/23/18 08/23/18 Range/Units 23:45 23:45 WBC 15.4 H (4.5-11.0) K/uL RBC 4.97 (4.30-5.90) M/uL Hgb 15.2 H (12.0-15.0) g/dL Hct 44.9 (40.0-54.0) % MCV 90 (80-98) fL MCH 31 (27-31) pg MCHC 34 (32-36) % Plt Count 282 (150-400) K/uL Neut % (Auto) 59 (36-66) % Lymph % (Auto) 25 (24-44) % [place] % (Auto) 13 H (2-6) % Eos % (Auto) 3 (2-4) % Baso % (Auto) 1 (0-1) % Sodium 143 (140-148) mmol/L Potassium 3.8 (3.6-5.2) mmol/L Chloride 103 (100-108) mmol/L Carbon Dioxide 28 (21-32) mmol/L Anion Gap 12.4 (5.0-14.0) mmol/L BUN 13 (7-18) mg/dL Creatinine 0.9 (0.8-1.3) mg/dL Est Cr Clr Drug Dosing 93.71 mL/min Estimated GFR (MDRD) > 60 (>60) Glucose 107 H (74-106) mg/dL Calcium 8.9 (8.5-10.1) mg/dL Total Bilirubin 0.5 (0.2-1.0) mg/dL AST 18 (15-37) U/L ALT 30 (12-78) U/L Alkaline Phosphatase 57 (46-116) U/L Total Protein 7.1 (6.4-8.2) g/dL Albumin 3.7 (3.4-5.0) g/dL Globulin 3.4 (2.3-3.5) g/dL Albumin/Globulin Ratio 1.1 L (1.2-2.2) Meds: Medications Generic Name Dose Route Start Last Admin Trade Name Freq PRN Reason Stop Dose Admin Piperacillin Sod/Tazobactam 50 mls @ 100 mls/hr 08/24/18 00:45 08/24/18 01:13 Sod 3.375 gm/ Sodium Chloride IV 100 mls/hr Q6H KEISHA Administration Sodium Chloride 10 ml 08/24/18 00:38 08/24/18 01:13 Saline Flush FLUSH 10 ml ASDIRECTED PRN Administration Keep Vein Open Departure - Departure Time of Disposition: 01:48 Disposition: Home, Self-Care 01 Condition: Fair Clinical Impression: Osteomyelitis, Cellulitis of toe, left - Discharge Information Referrals: Daneil Liu MD [Primary Care Provider] - Forms: ED Department Discharge Care Plan Goals: rtc in am for another does of Dr Garcia ho to see tomorrow and direct antibiotic therapy over the weekend, appt with Dr Noriega on Monday or Monday. - My Orders Last 24 Hours: My Active Orders 08/24/18 00:38 Sodium Chloride 0.9% [Saline Flush] 10 ml FLUSH ASDIRECTED PRN Saline Lock Insert [OM.PC] Routine 08/24/18 00:45 Piperacillin/Tazobactam [Zosyn] 3.375 gm Sodium Chloride 0.9% [Normal Saline] 50 ml IV Q6H - Assessment/Plan Last 24 Hours: My Active Orders 08/24/18 00:38 Sodium Chloride 0.9% [Saline Flush] 10 ml FLUSH ASDIRECTED PRN Saline Lock Insert [OM.PC] Routine 08/24/18 00:45 Piperacillin/Tazobactam [Zosyn] 3.375 gm Sodium Chloride 0.9% [Normal Saline] 50 ml IV Q6H
--- NOTE | 2018-08-24 01:07 | CRLCR ---
Indication: Toe infection Technique: Three views left toes Comparison: June 27, 2017 Findings: Status post resection of the 1st toe. Bony erosions involving the distal tuft of the left 2nd toe. Soft tissue swelling of the 2nd digit. Soft tissue defect on the distal portion of the left 2nd toe. Impression: Soft tissue defect on the distal 2nd toe with bony erosions in the distal tuft concerning for osteomyelitis. Status post resection of the 1st toe. Dictated by Nancy Rodriguez MD @ Aug 24 2018 1:05AM Signed by Dr. Nancy Rodriguez @ Aug 24 2018 1:07AM
== END 2018-08-24 02:10 | disposition home or self-care (01) ==
LOC: JP.ED 21:01
DX: L03.032 Cellulitis of left toe (principal); M86.9 Osteomyelitis, unspecified; J44.9 Chronic obstructive pulmonary disease, unspecified; I48.91 Unspecified atrial fibrillation; Z95.1 Presence of aortocoronary bypass graft; Z95.5 Presence of coronary angioplasty implant and graft; Z79.899 Other long term (current) drug therapy; Z79.01 Long term (current) use of anticoagulants
CPT/HCPCS: 36415; 73660; 80053; 85025; 96365; 99284; J2543; J7050

== ENCOUNTER 2018-08-27 13:17 | Day surgery (SDC) | payer BC, MEDICARE ==
[2018-08-27] MEDS ORDERED: Lidocaine 2% 20 ML MDV ONE (13:53)
[2018-08-27] MEDS ORDERED: Bupivacaine 0.5% 30 ML SDV ONE (13:53)
[2018-08-27] MEDS ORDERED: fentaNYL 100 MCG/2 ML SDV ONE ×2 (14:32→15:57)
[2018-08-27] MEDS ORDERED: Propofol 200 MG/20 ML SDV ONE (14:32)
[2018-08-27] MEDS ORDERED: Midazolam 1 MG/ML 2 ML SDV ONE (14:32)
[2018-08-27] MEDS ORDERED: Lactated Ringers 1,000 ML IV SCH (15:30)
[2018-08-27] MEDS: Ertapenem 1 GM in Sodium Chloride 0.9% 100 ML IV ONE ×2 (15:40→17:07)
[2018-08-27 17:21] VITALS: BP 125/70
--- NOTE | 2018-08-27 23:21 | OR ---
DATE OF PROCEDURE: 08/27/2018 PLASTIC SHAPER: None. PREOPERATIVE DIAGNOSIS: Osteomyelitis, left 2nd toe. POSTOPERATIVE DIAGNOSIS: Osteomyelitis, left 2nd toe. PROCEDURE: Amputation, left 2nd toe. ANESTHESIA: Local with IV sedation. HEMOSTASIS: None. ESTIMATED BLOOD LOSS: 10 mL. MATERIALS: None. INJECTABLES: A total of 10 mL of 1:1 mixture of lidocaine 2% plain and Marcaine 0.5% plain was injected into the proximal to the left 2nd toe. PATHOLOGY: Left 2nd toe sent, also aerobic and anaerobic cultures were sent. CONDITION: Stable. INDICATIONS FOR SURGERY: Osteomyelitis, distal phalanx, left 2nd toe with cellulitis, left 2nd toe. PROCEDURE IN DETAIL: The patient was brought to the operating room, placed on the operating table in supine position. Following IV sedation, anesthesia was obtained with a total of 1:1 mixture of lidocaine 2% plain and Marcaine 0.5% plain. The left foot was scrubbed, prepped, and draped in the usual aseptic manner, raised to 60 degrees for hemostasis. Foot was lowered to table. Skin incision was made in a tennis racquet type incision around the base of the left 2nd toe. Incision was taken straight down to bone. The left 2nd toe was disarticulated at the 2nd metatarsophalangeal joint with a 15 blade and then was removed and an incision was then made into the distal end of the left 2nd toe and deep cultures were taken from the area where the osteomyelitis was located both aerobic and anaerobic. The incision was then flushed out with copious amounts of sterile saline and closed with 3-0 nylon in a simple interrupted configuration, dressed with Xeroform, 4x4s, Kerlix, and Coban. The patient was then returned to the recovery room with vital signs stable and vascular status intact to both feet. The patient was instructed to rest and elevate the left foot, maintain strict nonweightbearing for 2 weeks and to ambulate using crutches or walker and to return to clinic in one week for followup, at which time he will be re-evaluated. The patient was told to go to the emergency room immediately if he has any nausea, vomiting, fever, chills, chest pain, calf pain, or difficulty breathing. The patient was told to call if he has any other questions or concerns. Denilson Gonsalez DPM /[id number]
== END 2018-08-27 17:36 | disposition home or self-care (01) ==
LOC: JP.SDS 13:17
PROVIDERS: ATTEND Podiatrist Foot & Ankle Surgery
DX: M86.172 Other acute osteomyelitis, left ankle and foot (principal); L03.032 Cellulitis of left toe; L97.522 Non-pressure chronic ulcer of other part of left foot with fat layer exposed; I10 Essential (primary) hypertension; F41.9 Anxiety disorder, unspecified; E78.5 Hyperlipidemia, unspecified; Z87.891 Personal history of nicotine dependence; Z79.01 Long term (current) use of anticoagulants; Z79.82 Long term (current) use of aspirin; Z79.899 Other long term (current) drug therapy; Z88.8 Allergy status to other drugs, medicaments and biological substances
CPT/HCPCS: 28820; 87070; 87075; 87205; C1751; J1335; J2001; J2250; J2704; J3010; J3490; J7030; J7120; 87077; 87186

== ENCOUNTER 2019-06-24 06:32 | Day surgery (SDC) | payer BC, MEDICARE ==
[2019-06-24] MEDS ORDERED: Lactated Ringers 1,000 ML IV SCH (07:00)
[2019-06-24] MEDS ORDERED: Propofol 200 MG/20 ML SDV ONE ×2 (07:24→07:59)
[2019-06-24] MEDS ORDERED: Midazolam 1 MG/ML 2 ML SDV ONE (07:24)
[2019-06-24] MEDS ORDERED: fentaNYL 100 MCG/2 ML SDV ONE (07:24)
[2019-06-24 09:57] VITALS: PULSE 60
[2019-06-24 09:59] VITALS: BP 106/53
--- NOTE | 2019-06-24 13:17 | OR ---
DATE OF PROCEDURE: 06/24/2019 SURGEON: Brian King MD PREOP DIAGNOSIS: History of colon polyps. POSTOPERATIVE DIAGNOSES: Diverticulosis; 3 small colon polyps, sent to the laboratory as 2 specimens; history of colon polyps. PROCEDURE PERFORMED: Colonoscopy to the cecum with biopsy resection of 3 small colon polyps, sent to the laboratory as 2 specimens. ANESTHESIA: IV anesthesia with monitored anesthesia care. INDICATION: This 63-year-old white male is referred for a colonoscopy because of a history of colon polyps. He says his last colonoscopic exam was done 7 years ago. I counseled him for the procedure, including risks and alternatives, and he gave his informed consent to proceed. DESCRIPTION OF PROCEDURE: The patient was placed in the left lateral decubitus position. IV anesthesia was administered by the Anesthesia Service. Time-out was held. A rectal exam was performed, which was unremarkable. The flexible video Olympus colonoscope was introduced through his anus, up his rectum, and out his colon all the way to the cecum. En route, we saw multiple left-sided diverticula. Also, in the transverse colon , we saw a small polyp, which was removed with a couple of bites of the biopsy forceps. Once the cecum was reached, the scope was slowly withdrawn, examining the mucosa throughout. No additional mucosal abnormalities were noted until we reached the rectum. Here, we saw 2 small polyps near each other, which were removed with the biopsy forceps and sent to the laboratory as 1 specimen. The scope was retroflexed in the rectum with the distal rectum appearing unremarkable. The scope was straightened and removed. He tolerated the procedure well. Brian King MD /[id number] MTDBrissa
== END 2019-06-24 10:45 | disposition home or self-care (01) ==
LOC: JP.SDS 06:32
PROVIDERS: ATTEND Surgery
DX: Z12.11 Encounter for screening for malignant neoplasm of colon (principal); D12.3 Benign neoplasm of transverse colon; K62.1 Rectal polyp; K57.30 Diverticulosis of large intestine without perforation or abscess without bleeding; I10 Essential (primary) hypertension; E78.5 Hyperlipidemia, unspecified; I25.10 Atherosclerotic heart disease of native coronary artery without angina pectoris; F17.200 Nicotine dependence, unspecified, uncomplicated; Z86.010 Personal history of colon polyps
CPT/HCPCS: 45380; 88305; J2250; J2704; J3010; J7120

== ENCOUNTER 2019-12-20 05:34 | Day surgery (SDC) | payer BC, MEDICARE ==
[~2019-12-20 05:34] MED LIST changes: +Acetaminophen 500 MG Tab PO ONE; -Bupivacaine 0.5% 30 ML SDV ONE; -Lactated Ringers 1,000 ML IV SCH; -Lidocaine 2% 20 ML MDV ONE
[2019-12-20] MEDS ORDERED: Dextrose 5%-Lactated Ringers 1,000 ML IV SCH (06:00)
[2019-12-20] MEDS ORDERED: Bupivacaine 0.5% 50 ML MDV ONE (06:23)
[2019-12-20] MEDS ORDERED: Lidocaine 1% with EPINEPHrine 1:100,000 50 ML MDV ONE (06:24)
[2019-12-20] MEDS ORDERED: fentaNYL 100 MCG/2 ML SDV ONE (06:59)
[2019-12-20] MEDS ORDERED: Midazolam 1 MG/ML 2 ML SDV ONE ×2 (06:59→07:23)
[2019-12-20] MEDS ORDERED: Propofol 200 MG/20 ML SDV ONE ×2 (06:59→07:23)
[2019-12-20] MEDS ORDERED: ceFAZolin 2 GM in Premix Bag 1 BAG IV ONE (07:15)
[2019-12-20] MEDS ORDERED: fentaNYL 100 MCG/2 ML SDV IVPUSH ONE (08:36)
[2019-12-20] MEDS ORDERED: hydrOXYzine HCL 100 MG/2 ML SDV IM ONE (08:36)
[2019-12-20] MEDS ORDERED: Acetaminophen/oxyCODONE 325-5 MG Tab PO ONE (10:00)
[2019-12-20 10:06] VITALS: BP 102/55; PULSE 60
--- NOTE | 2019-12-23 10:31 | OR ---
DATE OF PROCEDURE: 12/20/2019 SURGEON: Shoaib Godoy MD PREOPERATIVE DIAGNOSIS: Recurrent left inguinal hernia. POSTOPERATIVE DIAGNOSES: 1. Recurrent left inguinal hernia. 2. Left ilioinguinal nerve at risk for scar entrapment. 3. Migration of previously placed mesh plug into an intraperitoneal location. OPERATIVE PROCEDURES: Left inguinal exploration with: 1. Open repair of recurrent incarcerated incisional hernia with mesh (92376). 2. Excision of portion of left ilioinguinal nerve (35019). 3. Removal of mesh migrated into the intraperitoneal location (88180). ANESTHESIA: Local plus IV sedation. TAXATION ACCOUNTANT: Devorah Espino PA-C INDICATIONS FOR PROCEDURE: This is a 64-year-old male, presenting with recurrent left inguinal hernia. The patient had previously undergone repair per Dr. King with a mesh plug technique, and as of this point, a progressively increasingly symptomatic left inguinal hernia. Plan is to proceed with a left inguinal exploration with repair of the hernia with repeat mesh plug technique. Potential risks of the procedure including bleeding, infection, injury to the underlying viscera, problems with mesh becoming infected or the hernia recurring were all reviewed, and the patient wishes to proceed. DETAILS OF PROCEDURE: The patient was taken to the operating room, placed in a supine position. After IV sedation was administered, the abdomen and groin areas were prepped and draped. The left inguinal area was then anesthetized with 1% lidocaine mixed with Marcaine, and the previously used left inguinal incision was then reused and carried down through the skin, subcutaneous tissue, and through the external oblique aponeurosis, some aponeurotic flaps were then raised superiorly and inferiorly. The left ilioinguinal nerve was noted to cross the area of dissection and was felt to be high risk for scar entrapment if left in place. Given this, a portion of this was excised out to the far lateral aspect of the incision. The cord structures were then mobilized upward. The patient was noted to have the previous mesh plug to have migrated into the intraperitoneal location. This was grasped upward and using cautery dissection, it was gradually excised. There was a defect in the peritoneum upon its removal, as one would expect, which was closed with a [id number] stitch of 3-0 Vicryl stitch. The patient at this point had some incarcerated component to the hernia because of some preperitoneal fat and omentum which had prolapsed up into the area adjacent to the intraperitoneal migrated mesh. This was dissected free and returned back to the peritoneal cavity as well, prior to closure of the peritoneal defect as mentioned above. Initially, an extra large mesh plug was then placed in the area medial to the inferior epigastric vessels. This was affixed to the Sam's ligament with titanium tacking screws. Once this was in place, this was affixed superiorly and medially to the conjoint tendon with horizontal mattress sutures. There was still significant defect laterally, and the mesh plug was placed into that location. This was affixed superiorly, medially, and inferiorly with horizontal mattress sutures of 0 Vicryl stitch as well, and then the 2 components of the mesh were then sutured together with a horizontal mattress stitch, which incorporated both of those segments of the mesh to the superior aspect of the conjoint tendon. At this point, the conjoint tendon was affixed to the shelving portion of the inguinal ligament with a running 4-0 Vicryl stitch. This included the previously placed flat portion of mesh plug system, and given this, the floor was not reinforced further with the flat portion of the mesh plug system at this time. The external oblique aponeurosis was then approximated with some 3-0 Vicryl stitch, as was the subcutaneous tissue, and skin closed with justin. Dressing was applied. The patient was taken to the recovery room in satisfactory condition. Physician kindergarten assistant, Devorah Espino, played an essential role in assisting in this case, helping to position the patient, retract structures as needed, as well as suturing and cutting sutures when indicated. Her presence improved the patient's safety and decreased operative time. Shoaib Godoy MD /[id number] MTDBrissa
== END 2019-12-20 10:55 | disposition home or self-care (01) ==
LOC: JP.SDS 05:34
PROVIDERS: ATTEND Surgery
DX: K40.31 Unilateral inguinal hernia, with obstruction, without gangrene, recurrent (principal); G57.82 Other specified mononeuropathies of left lower limb; I10 Essential (primary) hypertension; E66.9 Obesity, unspecified; Z68.32 Body mass index [BMI] 32.0-32.9, adult
CPT/HCPCS: 49402; 49521; 64790; 88300; 88302; A9270; C1713; C1781; J0690; J2020; J2250; J2704; J3010; J3410; J3490; J7121

== ENCOUNTER 2021-05-03 11:26 | Inpatient (IN) | payer BC, MEDICARE ==
[2021-05-03] MEDS ORDERED: Bupivacaine 0.5% 50 ML MDV ONE (12:06)
[2021-05-03] MEDS ORDERED: Vancomycin 2 GM in Sodium Chloride 0.9% 500 ML IV ONE (12:15)
[2021-05-03 12:28] LABS: CORONAVIRUS COVID-19 NAA NEGATIVE (NEGATIVE)
[2021-05-03] MEDS ORDERED: Lactated Ringers 1,000 ML IV SCH (12:30)
[2021-05-03] MEDS ORDERED: Piperacillin/Tazobactam/Dext 3.375 GM in Premix Bag 1 BAG IV ONE (12:30)
[2021-05-03] MEDS ORDERED: fentaNYL 100 MCG/2 ML SDV ONE ×2 (12:36→13:14)
[2021-05-03] MEDS ORDERED: Midazolam 1 MG/ML 2 ML SDV ONE (12:36)
[2021-05-03] MEDS ORDERED: Propofol 200 MG/20 ML SDV ONE (12:36)
--- NOTE | 2021-05-03 14:47 | PCM.HP.2 ---
H&P History of Present Illness - General Date of Service: 05/03/21 Admit Problem/Dx: Admission Diagnosis/Problem Admission Diagnosis/Problem Cellulitis and abscess Source of Information: Patient, Provider History Limitations: Reports: No Limitations - History of Present Illness Initial Comments - Free Text/Narative: CC: My foot was not quite right HPI: Bautista presented initially to the podiatry clinic today and was taken to the operating room for surgical management of cellulitis and abscess involving his left foot. He was admitted to the hospital for IV antibiotics. I was asked to admit him after surgery. He reports that he first noticed mild purulent drainage on night, 4 nights ago. He did not notice significant pain or swelling at that time. The next day he reported some discomfort in the foot and noticed that it was a little bit red and swollen. This progressed through the weekend with increasing redness and swelling. It was uncomfortable to walk on the foot. He had a similar issue in the past so no he needed to see a route driver. He did not report any fevers or chills. No nausea or abdominal pain. No sick contacts. No myalgias or arthralgias. Work-up in the clinic raised concern for underlying infection with some subcutaneous gas noted on x-ray imaging. The patient was taken to the operating room and had drainage of the abscess involving the space between his first and second toe on the left foot. There is no evidence for osteomyelitis. The patient was admitted for IV antibiotic therapy. Left Foot Pain Score (Numeric/FACES): 5 - Related Data Allergies/Adverse Reactions: Allergies Allergy/AdvReac Type Severity Reaction Status Date / Time environmental Allergy Cough Uncoded 05/03/21 12:27 Home Medications: Home Meds ALPRAZolam [Xanax] 0.5 mg PO QID PRN 05/16/16 [History] Aspirin [Halfprin] 81 mg PO BEDTIME 05/16/16 [History] Cetirizine [ZyrTEC] 10 mg PO BEDTIME 05/16/16 [History] Clopidogrel [Plavix] 75 mg PO BEDTIME 05/16/16 [History] Metoprolol Succinate [Toprol XL] 25 mg PO BEDTIME 05/16/16 [History] Pregabalin [Lyrica] 100 mg PO TID 05/16/16 [History] oxyCODONE HCl/Acetaminophen [Endocet 5-325 Tablet] 1 - 2 each PO Q4H PRN 05/16/16 [History] Losartan Potassium 25 mg PO DAILY 06/20/19 [History] Nitroglycerin [Nitrostat] 0.4 mg SL ASDIRECTED 06/20/19 [History] Sildenafil [Viagra] 100 mg PO DAILY PRN 06/20/19 [History] atorvaSTATin Calcium [Atorvastatin Calcium] 80 mg PO BEDTIME 06/20/19 [History] Past Medical History HEENT History: Reports: Hard of Hearing, Impaired Vision, Other (See Below) Other HEENT History: ruptured ear drums Cardiovascular History: Reports: Afib, Bypass, CAD, HI, PVD, SOB on Exertion, Stents Respiratory History: Reports: COPD Gastrointestinal History: Reports: Colon Polyp Genitourinary History: Reports: None Musculoskeletal History: Reports: Arthritis, Back Pain, Chronic Other Musculoskeletal History: right knee Neurological History: Reports: Neuropathy, Peripheral Psychiatric History: Reports: Anxiety Endocrine/Metabolic History: Reports: Obesity/BMI 30+ Hematologic History: Reports: Blood Transfusion(s), Other (See Below) Other Hematologic History: reaction to blood transfusion - "antibodies" Immunologic History: Reports: None Oncologic (Cancer) History: Reports: None Dermatologic History: Reports: Other (See Below) Other Dermatologic History: left great toe ulcer - Infectious Disease History Infectious Disease History: Reports: Chicken Pox, Measles, Mumps - Past Surgical History HEENT Surgical History: Reports: Tonsillectomy Cardiovascular Surgical History: Reports: Coronary Artery Bypass, Coronary Ar noelle Stent, Vascular Surgery, Other (See Below) Other Cardiovascular Surgeries/Procedures: "attempted vascular surgery" was unsuccessful. Respiratory Surgical History: Reports: None GI Surgical History: Reports: Appendectomy, Colonoscopy, Hernia, Abdominal Endocrine Surgical History: Reports: None Neurological Surgical History: Reports: Laminectomy, Lumbar Spine, Spinal Fu hood, Other (See Below) Other Neurological Surgeries/Procedures: alif surgery Musculoskeletal Surgical History: Reports: Amputation, Knee Replacement Other Musculoskeletal Surgeries/Procedures:: left toe amputations Dermatological Surgical History: Reports: None Social & Family History - Family History Family Medical History: No Pertinent Family History - Tobacco Use Tobacco Use Status *Q: Former Tobacco User Years of Tobacco use: 40 Used Tobacco, but Quit: Yes Month/Year Tobacco Last Used: 2020 - Caffeine Use Caffeine Use: Reports: Coffee - Alcohol Use Alcohol Use History: No - Recreational Drug Use Recreational Drug Use: No H&P Review of Systems - Review of Systems: Review Of Systems: See Below Free Text/Narrative: A complete 12 point review of systems was obtained. Pertinent positives and negatives are noted in the history of present illness. All other systems were reviewed and were negative except as noted. Exam - Exam Exam: See Below - Vital Signs Vital Signs: Last Vital Signs Temp 36.7 C 05/03/21 13:50 Pulse 70 05/03/21 13:50 Resp 16 05/03/21 13:50 BP 107/66 05/03/21 13:50 Pulse Ox 95 05/03/21 13:50 Weight: 102.98 kg - Exam Quality Assessment: No: Supplemental Oxygen General: Alert, Oriented, Cooperative. No: Mild Distress HEENT: Conjunctiva Clear, Mucosa Moist & [place] Neck: Supple, Trachea Midline Lungs: Clear to Auscultation, Normal Respiratory Effort Cardiovascular: Regular Rate, Regular Rhythm. No: Systolic Murmur GI/Abdominal Exam: Normal Bowel Sounds, Soft, Non-Tender, No Distention Extremities: No Pedal Edema, Other (Left foot wrapped in surgical dressing and secured with Coban). No: Increased Warmth Peripheral Pulses: 2+: Dorsalis Pedis (R) Skin: Warm, Dry Neuro Extensive - Mental Status: Alert, Oriented x3, Nl Response to Commands Neuro Extensive - Motor, Sensory, Reflexes: No: Dysarthria, Abnormal Motor, Tremor Psychiatric: Alert, Normal Affect - Patient Data Lab Results Last 24 hrs: Laboratory Results - last 24 hr 05/03/21 05/03/21 Range/Units 11:48 12:26 WBC 20.4 H (4.5-11.0) K/uL RBC 4.88 (4.30-5.90) M/uL Hgb 15.0 (12.0-15.0) g/dL Hct 44.3 (40.0-54.0) % MCV 91 (80-98) fL MCH 31 (27-31) pg MCHC 34 (32-36) % Plt Count 326 (150-400) K/uL Influenza Type A RNA Negative (NEGATIVE) RSV RNA (INAAT) Negative (NEGATIVE) Influenza Type B RNA Negative (NEGATIVE) SARS-CoV-2 RNA (LISA) Negative (NEGATIVE) Result Diagrams: 05/03/21 12:26 Jed Results Last 24 hrs: Microbiology 05/03/21 13:17 Gram Stain - Final Foot, Left 05/03/21 13:16 Gram Stain - Final Foot, Left Imaging Impressions Last 24 hrs: X-ray of the left foot-concern for subcutaneous gas near the head of the first metatarsal on the left foot Sepsis Event Note - Focused Exam Vital Signs: Vital Signs Temp Pulse Resp BP Pulse Ox 05/03/21 13:50 36.7 C 70 16 107/66 95 05/03/21 13:46 67 14 90/56 L 97 05/03/21 13:40 70 14 108/59 L 98 05/03/21 13:36 71 12 108/65 98 05/03/21 13:30 36.5 C 71 12 108/65 97 05/03/21 12:01 36.3 C 69 16 114/66 97 *Q Meaningful Use (ADM) - VTE *Q VTE Pharmacological Contraindications *Q: Patient Scheduled Surgery - VTE Risk Assess *Q Each Risk Factor Represents 1 Point: Minor Surgery Planned, Obesity ( BMI > 25 kg/m2) Total Score 1 Point Risk Factors: 2 Each Risk Factor Represents 2 Points: Age 60 - 74 Years Total Score 2 Point Risk Factors: 2 Each Risk Factor Represents 3 Points: None Total Score 3 Point Risk Factors: 0 Each Risk Factor Represents 5 Points: None Total Score 5 Point Risk Factors: 0 Venous Thromboembolism Risk Factor Score *Q: 4 - Problem List (1) Cellulitis and abscess of left lower extremity SNOMED Code(s): 921745562 ICD Code: L03.116 - CELLULITIS OF LEFT LOWER LIMB; L02.416 - CUTANEOUS ABSCESS OF LEFT LOWER LIMB Status: Acute Current Visit: Yes (2) PAD (peripheral artery disease) SNOMED Code(s): 917556396 ICD Code: I73.9 - PERIPHERAL VASCULAR DISEASE, UNSPECIFIED Status: Chronic Current Visit: No (3) CAD (coronary artery disease) SNOMED Code(s): 07010867 ICD Code: I25.10 - ATHSCL HEART DISEASE OF [place] CORONARY ARTERY W/O ANG PCTRS Status: Chronic Current Visit: No Qualifiers: Coronary Disease-Associated Artery/Lesion type: [place] artery [place] vs. transplanted heart: [place] heart Associated angina: without angina Qualified Code(s): I25.10 - Atherosclerotic heart disease of [place] coronary artery without angina pectoris Problem List Initiated/Reviewed/Updated: Yes Orders Last 24hrs: Active Orders 24 hr Category Date Time Status Patient Status Manage Transfer [TRANSFER] Routine ADT 05/03/21 14:37 Ordered CULTURE ANAEROBIC [RM] Routine Lab 05/03/21 13:16 Results CULTURE ANAEROBIC [RM] Routine Lab 05/03/21 13:17 Results CULTURE WOUND + SMEAR [RM] Routine Lab 05/03/21 13:16 Results CULTURE WOUND + SMEAR [RM] Routine Lab 05/03/21 13:17 Results Lactated Ringers [Ringers, Lactated] 1,000 ml Med 05/03/21 12:30 Active IV ASDIRECTED SCD [Sequential Compression Device] [OM.PC] Routine Oth 05/03/21 12:24 Ordered Resuscitation Status Routine Resus Stat 05/03/21 14:39 Ordered Medication Orders Lactated Ringer's (Ringers, Lactated) 1,000 mls @ 75 mls/hr IV ASDIRECTED KEISHA Last Admin: 05/03/21 12:38 Dose: 75 mls/hr Documented by: [id number] Assessment/Plan Comment:: ASSESSMENT AND PLAN - Cellulitis and abscess of left foot-history of peripheral arterial disease but no history of diabetes. Trauma may have contributed to the infection. Status post incision and debridement on 05/03. Gram stain from samples obtained did show some gram-positive cocci with culture pending. -Antibiotic coverage with vancomycin and ceftazidime -Dressing changes daily and as needed -Follow-up wound culture -Follow-up with podiatry Peripheral arterial disease-known vascular disease. Recent attempts to improve functional status with physical therapy. -Continue medical management and routine outpatient follow-up Coronary artery disease-no active anginal symptoms. -Continue medical management Maintenance issues - -DVT prophylaxis-mechanical along with dual antiplatelet therapy -GI prophylaxis-not indicated -Nutrition-regular -Brothers catheter-not indicated CODE STATUS -full code Admission justification -this patient will be admitted for inpatient services and is medically appropriate meeting medical necessity for inpatient admission as outlined in my documentation. I reasonably expect the patient will require inpatient services that span a period time over 2 midnights. I reasonably expect this patient to be discharged or transferred within 96 hours after admission to the [facility]. Disposition -I anticipate discharge home after the hospital stay Primary care physician - Dr Noe Parrish M.D. - Mortality Measure Prognosis:: Good
[2021-05-03] MEDS ORDERED: LORazepam 2 MG/ML SDV IVPUSH PRN (14:59)
[2021-05-03] MEDS ORDERED: ALPRAZolam 0.5 MG Tab PO PRN (14:59)
[2021-05-03] MEDS ORDERED: Ondansetron 4 MG/2 ML SDV IV PRN (14:59)
[2021-05-03] MEDS ORDERED: Ondansetron 4 MG Tab.DIS PO PRN (14:59)
[2021-05-03] MEDS ORDERED: Magnesium Hydroxide 400 MG/5 ML Susp 30 ML Cup PO PRN (14:59)
[2021-05-03] MEDS ORDERED: fentaNYL 100 MCG/2 ML SDV IVPUSH PRN (14:59)
[2021-05-03] MEDS ORDERED: Albuterol 0.083% 2.5 MG/3 ML Neb Soln NEB PRN (14:59)
[2021-05-03] MEDS ORDERED: Acetaminophen 325 MG Tab PO PRN (14:59)
[2021-05-03] MEDS: Lactated Ringers 1,000 ML IV SCH (16:55)
[2021-05-03] MEDS: Acetaminophen/oxyCODONE 325-5 MG Tab PO PRN ×2 (18:05→22:23)
--- NOTE | 2021-05-03 20:46 | OR ---
DATE OF PROCEDURE: 05/03/2021 SURGEON: Denilson Gonsalez DPM SECURITY COORDINATOR: None. PREOPERATIVE DIAGNOSIS: Gas gangrene with abscess, left foot. POSTOPERATIVE DIAGNOSIS: Gas gangrene with abscess, left foot. PROCEDURE: I and D of the left foot. ANESTHESIA: Local with IV sedation. HEMOSTASIS: Obtained with an ankle tourniquet on the left ankle at 275 mmHg. ESTIMATED BLOOD LOSS: 5 mL. MATERIALS: None. INJECTABLES: A total of 20 mL of Marcaine 0.5% plain was injected preoperatively. PATHOLOGY: Aerobic and anaerobic and tissue cultures were taken. CONDITION: Stable. INDICATIONS FOR SURGERY: Abscess left foot with gas seen on x-ray. PROCEDURE IN DETAIL: Patient was brought into the operating room, placed on the operating table in the supine position. Following IV sedation, anesthesia was obtained with 20 mL of Marcaine 0.5% plain. The left foot was then scrubbed, prepped, and draped in the usual aseptic manner. Foot was raised to 60 degrees for hemostasis and tourniquet was inflated. Esmarch was not used. Incision was then made on the distal aspect of the left foot on the bulla that was in the 1st intermetatarsal space of the left foot and there was purulent and clear drainage. Deep cultures were taken from the abscess. We did make an incision deep into the 1st intermetatarsal space and found healthy bleeding tissue 2 to 3 mm down with no tracking. We then excised all tissue that looked suspicious of being infected down to healthy bleeding tissue and flushed out the area of the wound with 1 L of sterile saline. We then placed one distal and one proximal retention suture with 2-0 nylon leaving a large gap in between that was open. The gap was approximately 1 cm in diameter and then we dressed it with Xeroform, 4 x 4's, Kerlix, and Coban. Patient was returned to the recovery room with vital signs stable and vascular status intact to both feet. We will keep patient on IV vancomycin and Zosyn. The vancomycin dose as per pharmacy dosing. Medical management will be handled by Dr. Guero Parrish. Podiatry to follow. Denilson Gonsalez DPM /[id number]
[2021-05-03] MEDS ORDERED: Non-Formulary Medication 1 Each (Atorvastatin Calcium [Atorvastatin Calcium] 80 MG Tablet) PO SCH (21:00)
[2021-05-03] MEDS: Lactobacillus Rhamnosus GG (Probiotic) Cap PO SCH (21:50)
[2021-05-03] MEDS: Aspirin 81 MG Tab.EC PO SCH (21:51)
[2021-05-03] MEDS: atorvaSTATin 20 MG Tab PO SCH (21:53)
[2021-05-03] MEDS: Metoprolol Succinate 25 MG Tab.ER PO SCH (21:53)
[2021-05-03] MEDS: Clopidogrel 75 MG Tab PO SCH (21:53)
[2021-05-03] MEDS: Cetirizine 10 MG Tab PO SCH (21:54)
[2021-05-03] MEDS: Pregabalin 100 MG Cap PO SCH (21:56)
[2021-05-04] MEDS: Acetaminophen/oxyCODONE 325-5 MG Tab PO PRN ×4 (03:42→21:10)
[2021-05-04] MEDS: Lactated Ringers 1,000 ML IV SCH (07:51)
[2021-05-04] MEDS: Losartan 25 MG Tab PO SCH (09:34)
[2021-05-04] MEDS: Lactobacillus Rhamnosus GG (Probiotic) Cap PO SCH ×2 (09:34→21:11)
[2021-05-04] MEDS: Pregabalin 100 MG Cap PO SCH ×3 (09:36→21:10)
--- NOTE | 2021-05-04 09:38 | PCM.PN ---
- General Info Date of Service: 05/04/21 Subjective Update: No acute events overnight. Patient did report difficulty with pain control for part of the night. Left foot pain is better this morning after the dressing was removed. Minimal pain at this time. No fevers. White count is better. He does report some nausea but no vomiting. He did receive crutches this morning and will be getting some gait training with physical therapy. Culture growing gram- positive cocci but identification is pending. Functional Status: Reports: Pain Controlled, Tolerating Diet - Patient Data Vitals - Most Recent: Last Vital Signs Temp 36.7 C 05/03/21 18:15 Pulse 69 05/04/21 03:00 Resp 18 05/04/21 03:00 BP 137/65 05/04/21 03:00 Pulse Ox 93 L 05/04/21 03:00 Weight - Most Recent: 102.98 kg I&O - Last 24 Hours: Intake & Output 05/03/21 05/04/21 05/04/21 22:59 06:59 14:59 Intake Total 2328 Output Total 1600 750 Balance -1600 1578 Lab Results Last 24 Hours: Laboratory Results - last 24 hr 05/03/21 05/03/21 05/04/21 Range/Units 11:48 12:26 05:30 WBC 20.4 H 13.9 H (4.5-11.0) K/uL RBC 4.88 4.47 (4.30-5.90) M/uL Hgb 15.0 13.8 (12.0-15.0) g/dL Hct 44.3 40.7 (40.0-54.0) % MCV 91 91 (80-98) fL MCH 31 31 (27-31) pg MCHC 34 34 (32-36) % Plt Count 326 292 (150-400) K/uL Sodium (140-148) mmol/L Potassium (3.6-5.2) mmol/L Chloride (100-108) mmol/L Carbon Dioxide (21-32) mmol/L Anion Gap (5.0-14.0) mmol/L BUN (7-18) mg/dL Creatinine (0.8-1.3) mg/dL Est Cr Clr Drug Dosing mL/min Estimated GFR (MDRD) (>60) Glucose (74-106) mg/dL Calcium (8.5-10.1) mg/dL C-Reactive Protein (0.0-0.3) mg/dL Influenza Type A RNA Negative (NEGATIVE) RSV RNA (INAAT) Negative (NEGATIVE) Influenza Type B RNA Negative (NEGATIVE) SARS-CoV-2 RNA (LISA) Negative (NEGATIVE) 05/04/21 Range/Units 05:30 WBC (4.5-11.0) K/uL RBC (4.30-5.90) M/uL Hgb (12.0-15.0) g/dL Hct (40.0-54.0) % MCV (80-98) fL MCH (27-31) pg MCHC (32-36) % Plt Count (150-400) K/uL Sodium 139 L (140-148) mmol/L Potassium 3.9 (3.6-5.2) mmol/L Chloride 104 (100-108) mmol/L Carbon Dioxide 26 (21-32) mmol/L Anion Gap 12.9 (5.0-14.0) mmol/L BUN 10 (7-18) mg/dL Creatinine 0.9 (0.8-1.3) mg/dL Est Cr Clr Drug Dosing 88.72 mL/min Estimated GFR (MDRD) > 60 (>60) Glucose 114 H (74-106) mg/dL Calcium 8.5 (8.5-10.1) mg/dL C-Reactive Protein 6.00 H (0.0-0.3) mg/dL Influenza Type A RNA (NEGATIVE) RSV RNA (INAAT) (NEGATIVE) Influenza Type B RNA (NEGATIVE) SARS-CoV-2 RNA (LISA) (NEGATIVE) Jed Results Last 24 Hours: Microbiology 05/03/21 13:16 Gram Stain - Final Foot, Left Wound Culture - Preliminary Anaerobic Culture - Preliminary NO GROWTH AFTER 1 DAY 05/03/21 13:17 Gram Stain - Final Foot, Left Wound Culture - Preliminary Anaerobic Culture - Preliminary NO GROWTH AFTER 1 DAY Med Orders - Current: Current Medications Acetaminophen (Acetaminophen 325 Mg Tab) 650 mg PO Q4H PRN PRN Reason: Fever Last Admin: 05/03/21 18:07 Dose: 325 mg Documented by: Albuterol (Albuterol 0.083% 2.5 Mg/3 Ml Neb Soln) 2.5 mg NEB Q4H PRN PRN Reason: Shortness Of Breath/wheezing Alprazolam (Alprazolam 0.5 Mg Tab) 0.5 mg PO QID PRN PRN Reason: Anxiety Aspirin (Aspirin 81 Mg Tab.Ec) 81 mg PO BEDTIME [facility] Last Admin: 05/03/21 21:51 Dose: 81 mg Documented by: Atorvastatin Calcium (Atorvastatin 20 Mg Tab) 80 mg PO BEDTIME [facility] Last Admin: 05/03/21 21:53 Dose: 80 mg Documented by: Cetirizine HCl (Cetirizine 10 Mg Tab) 10 mg PO BEDTIME [facility] Last Admin: 05/03/21 21:54 Dose: 10 mg Documented by: Clopidogrel Bisulfate (Clopidogrel 75 Mg Tab) 75 mg PO BEDTIME [facility] Last Admin: 05/03/21 21:53 Dose: 75 mg Documented by: Fentanyl (Fentanyl 100 Mcg/2 Ml Sdv) 25 mcg IVPUSH Q2H PRN PRN Reason: Pain (severe 7-10) Last Admin: 05/03/21 19:57 Dose: 25 mcg Documented by: Lactated Ringer's (Ringers, Lactated) 1,000 mls @ 75 mls/hr IV ASDIRECTED [facility] Last Admin: 05/04/21 07:51 Dose: 75 mls/hr Documented by: Vancomycin HCl 1.5 gm/ Sodium (Chloride) 250 mls @ 167 mls/hr IV Q12H [facility] Last Admin: 05/04/21 01:23 Dose: 167 mls/hr Documented by: Ceftazidime 1 gm/ Sodium (Chloride) 50 mls @ 100 mls/hr IV Q8H [facility] Last Admin: 05/04/21 03:45 Dose: 100 mls/hr Documented by: Lactobacillus Rhamnosus (Lactobacillus Rhamnosus Gg (Probiotic) Cap) 1 cap PO BID [facility] Last Admin: 05/03/21 21:50 Dose: 1 cap Documented by: Lorazepam (Lorazepam 2 Mg/Ml Sdv) 0.5 mg IVPUSH Q4H PRN PRN Reason: Nausea/Vomiting Losartan Potassium (Losartan 25 Mg Tab) 25 mg PO DAILY [facility] Magnesium Hydroxide (Magnesium Hydroxide 400 Mg/5 Ml Susp 30 Ml Cup) 30 ml PO Q12H PRN PRN Reason: Constipation Metoprolol Succinate (Metoprolol Succinate 25 Mg Tab.Er) 25 mg PO BEDTIME [facility] Last Admin: 05/03/21 21:53 Dose: 25 mg Documented by: Ondansetron HCl (Ondansetron 4 Mg/2 Ml Sdv) 4 mg IV Q6H PRN PRN Reason: Nausea/Vomiting Ondansetron HCl (Ondansetron 4 Mg Tab.Dis) 4 mg PO Q6H PRN PRN Reason: Nausea able to take PO Oxycodone/Acetaminophen (Acetaminophen/Oxycodone 325-5 Mg Tab) 1 - 2 tab PO Q4H PRN PRN Reason: Pain Last Admin: 05/04/21 03:42 Dose: 2 tab Documented by: Pregabalin (Pregabalin 100 Mg Cap) 100 mg PO TID [facility] Last Admin: 05/03/21 21:56 Dose: 100 mg Documented by: Senna/Docusate Sodium (Docusate Sodium/Sennosides 50-8.6 Mg Tab) 1 tab PO BID PRN PRN Reason: Constipation Discontinued Medications Bupivacaine HCl (Bupivacaine 0.5% 50 Ml Mdv) Confirm Administered Dose 50 ml .ROUTE .STK-MED ONE Stop: 05/03/21 12:07 Last Admin: 05/03/21 13:42 Dose: 20 ml Documented by: Fentanyl (Fentanyl 100 Mcg/2 Ml Sdv) Confirm Administered Dose 100 mcg .ROUTE .STK-MED ONE Stop: 05/03/21 12:37 Fentanyl (Fentanyl 100 Mcg/2 Ml Sdv) Confirm Administered Dose 100 mcg .ROUTE .STK-MED ONE Stop: 05/03/21 13:15 Vancomycin HCl 2 gm/ Sodium (Chloride) 500 mls @ 250 mls/hr IV ONETIME ONE Stop: 05/03/21 14:14 Last Admin: 05/03/21 12:49 Dose: 250 mls/hr Documented by: Piperacillin/Tazobactam/ (Dextrose 3.375 gm/ Premix) 50 mls @ 100 mls/hr IV ONETIME ONE Stop: 05/03/21 12:59 Last Admin: 05/03/21 12:49 Dose: 100 mls/hr Documented by: Lactated Ringer's (Ringers, Lactated) 1,000 mls @ 75 mls/hr IV ASDIRECTED [facility] Last Admin: 05/03/21 12:38 Dose: 75 mls/hr Documented by: Midazolam HCl (Midazolam 1 Mg/Ml 2 Ml Sdv) Confirm Administered Dose 2 mg .ROUTE .STK-MED ONE Stop: 05/03/21 12:37 Propofol (Propofol 200 Mg/20 Ml Sdv) Confirm Administered Dose 200 mg .ROUTE .STK-MED ONE Stop: 05/03/21 12:37 - Exam Quality Assessment: No: Supplemental Oxygen General: Alert, Oriented, Cooperative, No Acute Distress Lungs: Normal Respiratory Effort. No: Wheezing GI/Abdominal Exam: Soft, No Distention Extremities: No Pedal Edema, Other (left foot wrapped with MORGAN) Skin: Warm, Dry Psy/Mental Status: Alert, Normal Affect - Patient Data Lab Results Last 24 hrs: Laboratory Results - last 24 hr 05/03/21 05/03/21 05/04/21 Range/Units 11:48 12:26 05:30 WBC 20.4 H 13.9 H (4.5-11.0) K/uL RBC 4.88 4.47 (4.30-5.90) M/uL Hgb 15.0 13.8 (12.0-15.0) g/dL Hct 44.3 40.7 (40.0-54.0) % MCV 91 91 (80-98) fL MCH 31 31 (27-31) pg MCHC 34 34 (32-36) % Plt Count 326 292 (150-400) K/uL Sodium (140-148) mmol/L Potassium (3.6-5.2) mmol/L Chloride (100-108) mmol/L Carbon Dioxide (21-32) mmol/L Anion Gap (5.0-14.0) mmol/L BUN (7-18) mg/dL Creatinine (0.8-1.3) mg/dL Est Cr Clr Drug Dosing mL/min Estimated GFR (MDRD) (>60) Glucose (74-106) mg/dL Calcium (8.5-10.1) mg/dL C-Reactive Protein (0.0-0.3) mg/dL Influenza Type A RNA Negative (NEGATIVE) RSV RNA (INAAT) Negative (NEGATIVE) Influenza Type B RNA Negative (NEGATIVE) SARS-CoV-2 RNA (LISA) Negative (NEGATIVE) 05/04/21 Range/Units 05:30 WBC (4.5-11.0) K/uL RBC (4.30-5.90) M/uL Hgb (12.0-15.0) g/dL Hct (40.0-54.0) % MCV (80-98) fL MCH (27-31) pg MCHC (32-36) % Plt Count (150-400) K/uL Sodium 139 L (140-148) mmol/L Potassium 3.9 (3.6-5.2) mmol/L Chloride 104 (100-108) mmol/L Carbon Dioxide 26 (21-32) mmol/L Anion Gap 12.9 (5.0-14.0) mmol/L BUN 10 (7-18) mg/dL Creatinine 0.9 (0.8-1.3) mg/dL Est Cr Clr Drug Dosing 88.72 mL/min Estimated GFR (MDRD) > 60 (>60) Glucose 114 H (74-106) mg/dL Calcium 8.5 (8.5-10.1) mg/dL C-Reactive Protein 6.00 H (0.0-0.3) mg/dL Influenza Type A RNA (NEGATIVE) RSV RNA (INAAT) (NEGATIVE) Influenza Type B RNA (NEGATIVE) SARS-CoV-2 RNA (LISA) (NEGATIVE) Result Diagrams: 05/04/21 05:30 05/04/21 05:30 Jed Results Last 24 hrs: Microbiology 05/03/21 13:16 Gram Stain - Final Foot, Left Wound Culture - Preliminary Anaerobic Culture - Preliminary NO GROWTH AFTER 1 DAY 05/03/21 13:17 Gram Stain - Final Foot, Left Wound Culture - Preliminary Anaerobic Culture - Preliminary NO GROWTH AFTER 1 DAY Sepsis Event Note - Evaluation Sepsis Screening Result: No Definite Risk - Focused Exam Vital Signs: Vital Signs Pulse Pulse Resp BP BP Pulse Ox 05/04/21 03:00 69 18 137/65 93 L 05/03/21 23:00 78 20 108/48 L 89 L 05/03/21 21:53 62 131/55 L - Problem List & Annotations (1) Cellulitis and abscess of left lower extremity SNOMED Code(s): 208515652 Code(s): L03.116 - CELLULITIS OF LEFT LOWER LIMB; L02.416 - CUTANEOUS ABSCESS OF LEFT LOWER LIMB Status: Acute Current Visit: Yes (2) PAD (peripheral artery disease) SNOMED Code(s): 537429785 Code(s): I73.9 - PERIPHERAL VASCULAR DISEASE, UNSPECIFIED Status: Chronic Current Visit: No (3) CAD (coronary artery disease) SNOMED Code(s): 47035786 Code(s): I25.10 - ATHSCL HEART DISEASE OF [place] CORONARY ARTERY W/O ANG PCTRS Status: Chronic Current Visit: No Qualifiers: Coronary Disease-Associated Artery/Lesion type: [place] artery [place] vs. transplanted heart: [place] heart Associated angina: without angina Qualified Code(s): I25.10 - Atherosclerotic heart disease of [place] coronary artery without angina pectoris - Problem List Review Problem List Initiated/Reviewed/Updated: Yes - My Orders Last 24 Hours: My Active Orders 05/03/21 14:39 Resuscitation Status Routine 05/03/21 14:59 ALPRAZolam [Xanax] 0.5 mg PO QID PRN Acetaminophen [TylenoL] 650 mg PO Q4H PRN Acetaminophen/oxyCODONE [Percocet 325-5 MG] 1 - 2 tab PO Q4H PRN Albuterol [Proventil Neb Soln] 2.5 mg NEB Q4H PRN Docusate Sodium/Sennosides [Senna Plus] 1 tab PO BID PRN LORazepam [Ativan] 0.5 mg IVPUSH Q4H PRN Lactated Ringers [Ringers, Lactated] 1,000 ml IV ASDIRECTED Magnesium Hydroxide [Milk of Magnesia] 30 ml PO Q12H PRN Ondansetron [Zofran ODT] 4 mg PO Q6H PRN Ondansetron [Zofran] 4 mg IV Q6H PRN fentaNYL [Sublimaze] 25 mcg IVPUSH Q2H PRN 05/03/21 14:59 Patient Status [ADT] Routine Intake and Output [RC] QSHIFT Notify Provider Vital Signs [RC] ASDIRECTED Oxygen Therapy [RC] PRN RT Aerosol Therapy [RC] ASDIRECTED Up With Assistance [RC] ASDIRECTED Vital Signs [RC] Q4H PT Evaluation and Treatment [CONS] Routine Weight bearing status [OM.PC] Routine 05/03/21 Dinner Regular Diet [DIET] 05/03/21 20:00 cefTAZidime Pentahydrate [Fortaz] 1 gm Sodium Chloride 0.9% [Normal Saline A dvBag] 50 ml IV Q8H 05/03/21 21:00 Aspirin [Halfprin] 81 mg PO BEDTIME Cetirizine [ZyrTEC] 10 mg PO BEDTIME Clopidogrel [Plavix] 75 mg PO BEDTIME Lactobacillus Rhamnosus GG [Culturelle] 1 cap PO BID Metoprolol Succinate [Toprol XL] 25 mg PO BEDTIME Pregabalin [Lyrica] 100 mg PO TID atorvaSTATin [Lipitor] 80 mg PO BEDTIME 05/04/21 02:00 Vancomycin 1.5 gm Sodium Chloride 0.9% [Normal Saline] 250 ml IV Q12H 05/04/21 09:00 Losartan [Cozaar] 25 mg PO DAILY 05/04/21 09:36 Convert IV to Saline Lock [OM.PC] Routine 05/05/21 05:00 CBC W/O DIFF,HEMOGRAM [HEME] Timed (1) CRP [C-REACTIVE PROTEIN] [CHEM] Timed - Plan Plan:: ASSESSMENT AND PLAN - Cellulitis and abscess of left foot-history of peripheral arterial disease but no history of diabetes. Status post incision and debridement on 05/03. Gram stain from samples obtained did show some gram-positive cocci with culture pending. White count is improving. Pain is improving. Tolerating antibiotics. -Antibiotic coverage with vancomycin and ceftazidime -Dressing changes daily and as needed -Follow-up wound culture -Follow-up with podiatry next week Peripheral arterial disease-known vascular disease. Recent attempts to improve functional status with physical therapy. -Continue medical management and routine outpatient follow-up Coronary artery disease-no active anginal symptoms. -Continue medical management Maintenance issues - -DVT prophylaxis-mechanical along with dual antiplatelet therapy -GI prophylaxis-not indicated -Nutrition-regular Disposition -I anticipate discharge home after the hospital stay Primary care physician - Dr Noe Parrish M.D.
--- NOTE | 2021-05-04 10:40 | PN ---
DATE OF SERVICE: 05/04/2021 SUBJECTIVE: The patient is seen at bedside. The patient is 1 day status post irrigation and debridement of the left foot for abscess with gas-forming bacteria. The patient relates he had a lot of pain in his foot last night. He relates he is having some nausea now, but denies vomiting, fever, chills, and denies chest pain, calf pain, and difficulty breathing. The patient denies having any other problems with his foot at this time. OBJECTIVE: GENERAL: The patient was alert and oriented x3, and in no acute distress. VITALS: Per electronic medical record. DERMATOLOGICAL: Examination of the left foot showed that the wound is still open. Retention sutures are present and are still in place. There is a small amount of perimarginal erythema, but no purulence. No malodor. No signs of infection. LABORATORY DATA: Swab cultures and tissue culture showed gram-positive cocci. White blood cell count today was 13.9, down from 20.4 yesterday. C-reactive protein was 6.0, down from 8.0 yesterday. ASSESSMENT: 1. Peripheral vascular disease. 2. The patient one day status post incision and drainage of the left foot for abscess with gas-forming bacteria, left foot. PLAN: The patient was examined and evaluated. Dressing was changed and we applied a dressing with Adaptic, 4x4s, Kerlix, and MORGAN. The patient was told he must remain nonweightbearing in order for the wound to heal and that will be likely for several weeks, possibly 6 to 8 weeks. The patient related understanding. The patient will be followed by Dr. Guero Parrish, hospitalist, and Dr. Parrish can discharge the patient when he deems reasonable and we will follow up with the patient in 1 week. Denilson Gonsalez DPM /[id number]
[2021-05-04] MEDS: Aspirin 81 MG Tab.EC PO SCH (21:12)
[2021-05-04] MEDS: atorvaSTATin 20 MG Tab PO SCH (21:12)
[2021-05-04] MEDS: Metoprolol Succinate 25 MG Tab.ER PO SCH (21:12)
[2021-05-04] MEDS: Clopidogrel 75 MG Tab PO SCH (21:12)
[2021-05-04] MEDS: Cetirizine 10 MG Tab PO SCH (21:13)
[2021-05-05] MEDS: Acetaminophen/oxyCODONE 325-5 MG Tab PO PRN ×2 (03:43→09:52)
[2021-05-05 08:47] VITALS: BP 141/63; PULSE 68
[2021-05-05] MEDS: Losartan 25 MG Tab PO SCH (09:04)
[2021-05-05] MEDS: Pregabalin 100 MG Cap PO SCH (09:04)
[2021-05-05] MEDS: Lactobacillus Rhamnosus GG (Probiotic) Cap PO SCH (09:05)
[2021-05-05] MEDS ORDERED: Doxycycline 100 MG Cap PO ONE (09:32)
--- NOTE | 2021-05-05 09:34 | PCM.DCSUM1 ---
Discharge Summary - Hospital Course Brief History: 65-year-old male with history of tobacco dependence, coronary artery disease, peripheral vascular disease who presented with left foot pain and swelling. He was sent from the podiatry clinic to the operating room for surgical debridement of an abscess and surrounding cellulitis and admitted for IV antibiotics following surgical drainage. Diagnosis: Stroke: No - Discharge Data Discharge Date: 05/05/21 Discharge Disposition: Home, Self-Care 01 Condition: Good - Referral to Home Health Primary Care Physician: Daniel Liu MD - Discharge Diagnosis/Problem(s) (1) Cellulitis and abscess of left lower extremity SNOMED Code(s): 345830690 ICD Code: L03.116 - CELLULITIS OF LEFT LOWER LIMB; L02.416 - CUTANEOUS ABSCESS OF LEFT LOWER LIMB Status: Acute Problem Details: cx with MSSA (2) PAD (peripheral artery disease) SNOMED Code(s): 659259617 ICD Code: I73.9 - PERIPHERAL VASCULAR DISEASE, UNSPECIFIED Status: Chronic (3) CAD (coronary artery disease) SNOMED Code(s): 50291762 ICD Code: I25.10 - ATHSCL HEART DISEASE OF [place] CORONARY ARTERY W/O ANG PCTRS Status: Chronic Qualifiers: Coronary Disease-Associated Artery/Lesion type: [place] artery [place] vs. transplanted heart: [place] heart Associated angina: without angina Qualified Code(s): I25.10 - Atherosclerotic heart disease of [place] coronary artery without angina pectoris - Patient Summary/Data Consults: Consultations 05/03/21 14:59 PT Evaluation and Treatment [CONS] Routine Please Evaluate and Treat. PT Reason for Consult: Strengthening Special Instructions: left foot infection, NWB - crutches and scooter training This query below is only for informational purposes and is not editable. Hospital Course: Bautista presented to the podiatry clinic with left foot pain, swelling and redness. X-ray imaging in the clinic revealed subcutaneous gas and there was concern for underlying abscess. The patient was taken to the operating room for incision and debridement. At the time of this surgery infection seem to be fairly superficial with no evidence for bony involvement. All of the devitalized tissue was removed. The wound was dressed and he was admitted to the hospital for IV antibiotics. Cultures were obtained from the deep portion of the abscess during surgery. Gram-positive cocci were noted on the Gram stain of this fluid. The patient was started on vancomycin and ceftazidime. Overnight following admission he did have some difficulty with pain control but by the next day he was feeling better with improved pain control. He did not have any fevers. His white blood cell count improved with the antibiotics and surgical debridement. We continued IV antibiotics for an additional 24 hours. His pain has been well controlled. He has not had any fevers. White blood cell count is stable. He has wound culture grew out MSSA that was sensitive to a variety of antibiotics. We have chosen doxycycline for outpatient antibiotic coverage. He feels well and would like to go home. He has worked with physical therapy to get some training for both the knee scooter and crutches. His will be able to provide the wound care at home and will be changing the dressing on the foot daily. He will have follow-up with podiatry next week. - Patient Instructions Diet: Regular Diet as Tolerated Activity: Non Weight Bearing (no weight bearing on your left foot ) Showering/Bathing: May Shower Notify Provider of: Fever, Increased Pain, Drainage Other/Special Instructions: 1. You were in the hospital for management of cellulitis and abscess involving the left foot. Your condition did require surgical debridement of the abscess. Wound care recommendations are discussed below. Your culture grew out a methicillin sensitive staph aureus. I recommend ongoing antibiotic therapy with doxycycline. Please take 100 mg twice daily for 7 days. Your first dose outside of the hospital will be due tonight. 2. Continue your usual home medications as previously prescribed. 3. Follow up with Dr Gonsalez as scheduled next week. 4. Dressing changes - remove old dress ing and cleanse gently. First apply the xeroform over the wound. Then cover this dressing with a 4 x 4. Wrap the end of your foot, toes and then the remainder of your foot with Kerlix. Secure this dressing with an Alexis wrap. - Discharge Plan *PRESCRIPTION DRUG MONITORING PROGRAM REVIEWED*: No *COPY OF PRESCRIPTION DRUG MONITORING REPORT IN PATIENT LISA: No Prescriptions/Med Rec: Doxycycline Hyclate 100 mg PO BID #14 capsule Home Medications: Home Meds ALPRAZolam [Xanax] 0.5 mg PO QID PRN 05/16/16 [History] Aspirin [Halfprin] 81 mg PO BEDTIME 05/16/16 [History] Cetirizine [ZyrTEC] 10 mg PO BEDTIME 05/16/16 [History] Clopidogrel [Plavix] 75 mg PO BEDTIME 05/16/16 [History] Metoprolol Succinate [Toprol XL] 25 mg PO BEDTIME 05/16/16 [History] Pregabalin [Lyrica] 100 mg PO TID 05/16/16 [History] oxyCODONE HCl/Acetaminophen [Endocet 5-325 Tablet] 1 - 2 each PO Q4H PRN 05/16 [History] Losartan Potassium 25 mg PO DAILY 06/20/19 [History] Nitroglycerin [Nitrostat] 0.4 mg SL ASDIRECTED 06/20/19 [History] Sildenafil [Viagra] 100 mg PO DAILY PRN 06/20/19 [History] atorvaSTATin Calcium [Atorvastatin Calcium] 80 mg PO BEDTIME 06/20/19 [History] Doxycycline Hyclate 100 mg PO BID #14 capsule 05/05/21 [Rx] Oxygen Therapy Mode: Room Air Patient Handouts: Skin Abscess, Doxycycline tablets or capsules, Surgical Wound Debridement, Care After Referrals: Denilson Gonsalez DPM [Physician] - 05/10/21 1:00 pm (Please arrive 15 minutes early to register for your appointment.) - Discharge Summary/Plan Comment DC Time >30 min.: Yes Total # of Minutes for Discharge Time: 45-complex follow up - Patient Data Vitals - Most Recent: Last Vital Signs Temp 34.1 C L 05/05/21 04:00 Pulse 68 05/05/21 08:00 Resp 16 05/05/21 08:00 BP 141/63 H 05/05/21 09:04 Pulse Ox 94 L 05/05/21 08:00 Weight - Most Recent: 102.965 kg I&O - Last 24 hours: Intake & Output 05/04/21 05/05/21 05/05/21 22:59 06:59 14:59 Intake Total 500 Output Total 400 1000 Balance -400 -500 Lab Results - Last 24 hrs: Laboratory Results - last 24 hr 05/05/21 05/05/21 Range/Units 04:30 04:30 WBC 14.5 H (4.5-11.0) K/uL RBC 4.56 (4.30-5.90) M/uL Hgb 14.1 (12.0-15.0) g/dL Hct 41.4 (40.0-54.0) % MCV 91 (80-98) fL MCH 31 (27-31) pg MCHC 34 (32-36) % Plt Count 296 (150-400) K/uL C-Reactive Protein 3.39 H (0.0-0.3) mg/dL ADITYA Results - Last 24 hrs: Microbiology 05/03/21 13:16 Gram Stain - Final Foot, Left Wound Culture - Final Staphylococcus Aureus Anaerobic Culture - Preliminary NO GROWTH AFTER 2 DAYS 05/03/21 13:17 Gram Stain - Final Foot, Left Wound Culture - Final Staphylococcus Aureus Anaerobic Culture - Preliminary NO GROWTH AFTER 2 DAYS Med Orders - Current: Current Medications Acetaminophen (Acetaminophen 325 Mg Tab) 650 mg PO Q4H PRN PRN Reason: Fever Last Admin: 05/03/21 18:07 Dose: 325 mg Documented by: Albuterol (Albuterol 0.083% 2.5 Mg/3 Ml Neb Soln) 2.5 mg NEB Q4H PRN PRN Reason: Shortness Of Breath/wheezing Alprazolam (Alprazolam 0.5 Mg Tab) 0.5 mg PO QID PRN PRN Reason: Anxiety Aspirin (Aspirin 81 Mg Tab.Ec) 81 mg PO BEDTIME [facility] Last Admin: 05/04/21 21:12 Dose: 81 mg Documented by: Atorvastatin Calcium (Atorvastatin 20 Mg Tab) 80 mg PO BEDTIME [facility] Last Admin: 05/04/21 21:12 Dose: 80 mg Documented by: Cetirizine HCl (Cetirizine 10 Mg Tab) 10 mg PO BEDTIME [facility] Last Admin: 05/04/21 21:13 Dose: 10 mg Documented by: Clopidogrel Bisulfate (Clopidogrel 75 Mg Tab) 75 mg PO BEDTIME [facility] Last Admin: 05/04/21 21:12 Dose: 75 mg Documented by: Fentanyl (Fentanyl 100 Mcg/2 Ml Sdv) 25 mcg IVPUSH Q2H PRN PRN Reason: Pain (severe 7-10) Last Admin: 05/03/21 19:57 Dose: 25 mcg Documented by: Vancomycin HCl 1.5 gm/ Sodium (Chloride) 250 mls @ 167 mls/hr IV Q12H [facility] Last Admin: 05/05/21 01:45 Dose: 167 mls/hr Documented by: Ceftazidime 1 gm/ Sodium (Chloride) 50 mls @ 100 mls/hr IV Q8H [facility] Last Admin: 05/05/21 03:46 Dose: 100 mls/hr Documented by: Lactobacillus Rhamnosus (Lactobacillus Rhamnosus Gg (Probiotic) Cap) 1 cap PO BID [facility] Last Admin: 05/05/21 09:05 Dose: 1 cap Documented by: Lorazepam (Lorazepam 2 Mg/Ml Sdv) 0.5 mg IVPUSH Q4H PRN PRN Reason: Nausea/Vomiting Losartan Potassium (Losartan 25 Mg Tab) 25 mg PO DAILY [facility] Last Admin: 05/05/21 09:04 Dose: 25 mg Documented by: Magnesium Hydroxide (Magnesium Hydroxide 400 Mg/5 Ml Susp 30 Ml Cup) 30 ml PO Q12H PRN PRN Reason: Constipation Metoprolol Succinate (Metoprolol Succinate 25 Mg Tab.Er) 25 mg PO BEDTIME [facility] Last Admin: 05/04/21 21:12 Dose: 25 mg Documented by: Ondansetron HCl (Ondansetron 4 Mg/2 Ml Sdv) 4 mg IV Q6H PRN PRN Reason: Nausea/Vomiting Ondansetron HCl (Ondansetron 4 Mg Tab.Dis) 4 mg PO Q6H PRN PRN Reason: Nausea able to take PO Oxycodone/Acetaminophen (Acetaminophen/Oxycodone 325-5 Mg Tab) 1 - 2 tab PO Q4H PRN PRN Reason: Pain Last Admin: 05/05/21 03:43 Dose: 2 tab Documented by: Pregabalin (Pregabalin 100 Mg Cap) 100 mg PO TID [facility] Last Admin: 05/05/21 09:04 Dose: 100 mg Documented by: Senna/Docusate Sodium (Docusate Sodium/Sennosides 50-8.6 Mg Tab) 1 tab PO BID P RN PRN Reason: Constipation Last Admin: 05/05/21 09:09 Dose: 1 tab Documented by: Discontinued Medications Bupivacaine HCl (Bupivacaine 0.5% 50 Ml Mdv) Confirm Administered Dose 50 ml .ROUTE .STK-MED ONE Stop: 05/03/21 12:07 Last Admin: 05/03/21 13:42 Dose: 20 ml Documented by: Fentanyl (Fentanyl 100 Mcg/2 Ml Sdv) Confirm Administered Dose 100 mcg .ROUTE .STK-MED ONE Stop: 05/03/21 12:37 Fentanyl (Fentanyl 100 Mcg/2 Ml Sdv) Confirm Administered Dose 100 mcg .ROUTE .STK-MED ONE Stop: 05/03/21 13:15 Vancomycin HCl 2 gm/ Sodium (Chloride) 500 mls @ 250 mls/hr IV ONETIME ONE Stop: 05/03/21 14:14 Last Admin: 05/03/21 12:49 Dose: 250 mls/hr Documented by: Piperacillin/Tazobactam/ (Dextrose 3.375 gm/ Premix) 50 mls @ 100 mls/hr IV ONETIME ONE Stop: 05/03/21 12:59 Last Admin: 05/03/21 12:49 Dose: 100 mls/hr Documented by: Lactated Ringer's (Ringers, Lactated) 1,000 mls @ 75 mls/hr IV ASDIRECTED [facility] Last Admin: 05/03/21 12:38 Dose: 75 mls/hr Documented by: Lactated Ringer's (Ringers, Lactated) 1,000 mls @ 75 mls/hr IV ASDIRECTED [facility] Last Admin: 05/04/21 07:51 Dose: 75 mls/hr Documented by: Midazolam HCl (Midazolam 1 Mg/Ml 2 Ml Sdv) Confirm Administered Dose 2 mg .ROUTE .STK-MED ONE Stop: 05/03/21 12:37 Propofol (Propofol 200 Mg/20 Ml Sdv) Confirm Administered Dose 200 mg .ROUTE .STK-MED ONE Stop: 05/03/21 12:37 *Q Meaningful Use (DIS) - VTE *Q VTE Pharmacological Contraindications *Q: Patient Scheduled Surgery
== END 2021-05-05 13:10 | disposition home or self-care (01) | DRG 364 ==
LOC: JP.SDS 11:26 → JP.SDSSCHI 11:26 → EDSTATUS 12:00 → JP.ICU 14:00
PROVIDERS: ADMIT Internal Medicine; ATTEND Internal Medicine
PROC: 0J9R0ZZ Drainage of Left Foot Subcutaneous Tissue and Fascia, Open Approach (ICD-10-PCS; principal; 2021-05-03)
DX: L03.116 Cellulitis of left lower limb (principal); L02.416 Cutaneous abscess of left lower limb; I73.9 Peripheral vascular disease, unspecified; A48.0 Gas gangrene; I25.10 Atherosclerotic heart disease of native coronary artery without angina pectoris; H91.90 Unspecified hearing loss, unspecified ear; H54.7 Unspecified visual loss; I48.91 Unspecified atrial fibrillation; J44.9 Chronic obstructive pulmonary disease, unspecified; M19.90 Unspecified osteoarthritis, unspecified site; M54.9 Dorsalgia, unspecified; G89.29 Other chronic pain; G62.9 Polyneuropathy, unspecified; F41.9 Anxiety disorder, unspecified; E66.9 Obesity, unspecified; Z96.659 Presence of unspecified artificial knee joint; B95.61 Methicillin susceptible Staphylococcus aureus infection as the cause of diseases classified elsewhere; Z20.822 Contact with and (suspected) exposure to COVID-19; Z87.891 Personal history of nicotine dependence; Z88.8 Allergy status to other drugs, medicaments and biological substances; Z79.82 Long term (current) use of aspirin; Z79.899 Other long term (current) drug therapy; I25.2 Old myocardial infarction; Z90.49 Acquired absence of other specified parts of digestive tract; Z68.30 Body mass index [BMI] 30.0-30.9, adult
CPT/HCPCS: 0241U; 36415; 80048; 85027; 86140; 87070; 87075; 87077; 87186; 87205; 97110-GP; 97162-GP; 97530-GP; 97535-GP; 99223; 99232; 99239; A9270-GY; J0713; J2250; J2543; J2704; J3010; J3370; J3490; J7040; J7050; J7120

== ENCOUNTER 2021-07-13 19:05 | Emergency (ER) | payer BC, MEDICARE ==
[2021-07-13 21:03] VITALS: BP 118/67; PULSE 76
[2021-07-13] MEDS ORDERED: Sulfamethoxazole/Trimethoprim 800-160 MG Tab PO ONE (21:38)
[2021-07-13] MEDS ORDERED: Cephalexin 250 MG Cap PO ONE (21:39)
== END 2021-07-13 22:16 | disposition home or self-care (01) ==
LOC: JP.ED 19:05
DX: L03.116 Cellulitis of left lower limb (principal); I48.91 Unspecified atrial fibrillation; I25.10 Atherosclerotic heart disease of native coronary artery without angina pectoris; I25.2 Old myocardial infarction; J44.9 Chronic obstructive pulmonary disease, unspecified; E66.9 Obesity, unspecified; Z68.33 Body mass index [BMI] 33.0-33.9, adult; Z91.09 Other allergy status, other than to drugs and biological substances
CPT/HCPCS: 36415; 85025; 86140; 93926; 93971; 99284; A9270

== ENCOUNTER 2024-10-08 08:58 | Emergency (ER) | payer BC, MEDICARE ==
[2024-10-08 10:24] VITALS: BP 119/65; PULSE 64
== END 2024-10-08 11:27 | disposition home or self-care (01) ==
LOC: JP.ED 08:58
DX: T87.89 Other complications of amputation stump (principal); I25.10 Atherosclerotic heart disease of native coronary artery without angina pectoris; M19.90 Unspecified osteoarthritis, unspecified site; E66.9 Obesity, unspecified; Z88.8 Allergy status to other drugs, medicaments and biological substances; Z79.899 Other long term (current) drug therapy; Z68.27 Body mass index [BMI] 27.0-27.9, adult
CPT/HCPCS: 99284